=== PATIENT | female | born 1965 | race Caucasian/White ===

== ENCOUNTER 2017-01-06 13:45 | Emergency (ER) | payer BC ==
[2017-01-06 13:54] VITALS: RESP 18
[2017-01-06] MEDS ORDERED: NITROGLYCERIN SL TABS 0.4 MG TAB SUBLINGUAL STA (14:02)
[2017-01-06] MEDS ORDERED: ASPIRIN 81 MG CHEW PO STA (14:02)
[2017-01-06] MEDS ORDERED: SODIUM CHLORIDE 0.9% 1,000 ML IV STA (14:02)
[2017-01-06 14:31] LABS: Basophils # (A) 0.1 k/uL (0-0.2); Basophils % (A) 1 %; CH 32.7; CHCM 33.6; Eosinophils # (A) 0.1 k/uL (0-0.7); Eosinophils % (A) 2 %; HCT 41.5 % (34.0-46.0); HDW 2.11; HGB 13.7 gm/dL (11.4-16.0); Luc # (Auto) 0.09; Luc % (Auto) 1; Lymphocytes # (A) 3.3 k/uL (1.0-4.8); Lymphocytes % (A) 52 %; MCH 32.1 pg (25.0-35.0); MCHC 32.9 g/dL (31.0-37.0); MCV 97.7 fL (80.0-100.0); Mean Platelet Volume 6.9; Monocytes # (A) 0.4 k/uL (0-1.0); Monocytes % (A) 6 %; Neutrophils # (A) 2.4 k/uL (1.3-7.7); Neutrophils % (A) 38 %; RBC 4.25 m/uL (3.80-5.40); RDW 12.8 % (11.5-15.5); WBC 6.3 k/uL (3.8-10.6)
--- NOTE | 2017-01-06 14:33 | ED ---
General Adult HPI - General Chief complaint: Arrhythmia/Palpitations Stated complaint: lt arm tingling Time Seen by Provider: 01/06/17 13:56 Source: patient, RN notes reviewed Mode of arrival: ambulatory Limitations: no limitations - History of Present Illness Initial comments: [place] patient is a 51-year-old female who presents emergency room today with a chief complaint of palpitations feeling nauseated this morning. Patient does admit that she woke up approximately 5 AM felt nauseated sick to her stomach. She admits that she felt some palpitations in her chest. States his symptoms are gone away. States also this morning upon awakening she felt some numbness tingling sensation to upper side of the left upper back and into the left arm. Patient states never had similar symptoms to this in the past. She states she' s currently being treated for a pneumonia bronchitis placed on antibiotics and steroids. She states some sure if it's related to these medications. She states she finished antibiotics and did not take the steroid today. She denies any other complaints or associated symptoms. Patient denies any recent fever, chills, shortness of breath, chest pain, back pain, abdominal pain, nausea or vomiting, dysuria or hematuria, constipation or diarrhea, headaches or visual changes, or any other complaints. - Related Data Home Medications Medication Instructions Recorded Confirmed Calcium Carbonate/Vitamin D3 1 tab PO DAILY 09/09/15 01/06/17 [Calcium 600 + Vit D Tablet] Ascorbic Acid [Vitamin C] 500 mg PO DAILY 01/06/17 01/06/17 Cholecalciferol [Vitamin D3] 1,000 unit PO DAILY 01/06/17 01/06/17 Pediatric Multivit Comb No.144 1 tab PO DAILY 01/06/17 01/06/17 [Children's Chewable Vitamin] Vitamin B-12 (Unknown Dose) 1 tab SUBLINGUAL TU 01/06/17 01/06/17 Allergies Allergy/AdvReac Type Severity Reaction Status Date / Time No Known Allergies Allergy Verified 01/06/17 14:36 Review of Systems ROS Statement: Those systems with pertinent positive or pertinent negative responses have been documented in the HPI. ROS Other: All systems not noted in ROS Statement are negative. Past Medical History Past Medical History: No Reported History History of Any Multi-Drug Resistant Organisms: None Reported Past Surgical History: Bariatric Surgery Past Psychological History: No Psychological Hx Reported Smoking Status: Never smoker Past Alcohol Use History: Occasional Past Drug Use History: None Reported General Exam - General Exam Comments Initial Comments: General: The patient is awake and alert, in no distress, and does not appear acutely ill. Eye: Pupils are equal, round and reactive to light, extra-ocular movements are intact. No nystagmus. There is normal conjunctiva bilaterally. No signs of icterus. Ears, nose, mouth and throat: There are moist mucous membranes and no oral lesions. Neck: The neck is supple, there is no tenderness or JVD. Cardiovascular: There is a regular rate and rhythm. No murmur, rub or gallop is appreciated. Respiratory: Lungs are clear to auscultation, respirations are non-labored, breath sounds are equal. No wheezes, stridor, rales, or rhonchi. Gastrointestinal: Soft, non-distended, non-tender abdomen without masses or organomegaly noted. There is no rebound or guarding present. No CVA tenderness. Bowel sounds are unremarkable. Musculoskeletal: Normal ROM, no tenderness. Strength 5/5. Sensation intact. Pulses equal bilaterally 2+. Neurological: A&O x 3. CN II-XII intact, There are no obvious motor or sensory deficits. Coordination appears grossly intact. Speech is normal. Skin: Skin is warm and dry and no rashes or lesions are noted. Psychiatric: Cooperative, appropriate mood & affect, normal judgment. Limitations: no limitations Course Vital Signs 01/06/17 01/06/17 01/06/17 13:50 15:41 16:52 Temperature 97.4 F L 97.7 F 97.8 F Pulse Rate 63 63 66 Respiratory 18 18 18 Rate Blood Pressure 128/76 111/73 117/74 O2 Sat by Pulse 100 97 98 Oximetry EKG Findings - EKG Comments: EKG Findings:: EKG performed at 1436: A 12-lead EKG was performed and interpreted by me as showing the following: Rate is 61, and rhythm is normal sinus. There are normal QRS complexes and normal R-wave progression. ST segments have no elevation or depression, and CO segments appear normal. Medical Decision Making - Medical Decision Making Patient 51-year-old female presenting for atypical chest pain. Patient's EKG shows normal sinus rhythm. Chest x-ray negative. Initial cardiac enzymes negative. Remaining labs reviewed. Patient no relief with medications. Case discussed with attending physician who did discuss case with admitting physician Dr. Robb who recommends a repeat troponin at 3 hours. Patient has been updated will have repeat troponin at 1715. 1815: As reexamined at this time shows no signs of distress. Resting comfortably in the stretcher. Patient's repeat troponin negative. Results were discussed with the patient. Patient discharged home. Advised follow-up with Dr. Souza insurance special agent. Patient advised to return if any symptoms increase or worsen or for any other concerns. - Lab Data Result diagrams: 01/06/17 14:14 01/06/17 14:14 Lab Results 01/06/17 01/06/17 01/06/17 Range/Units 14:14 14:14 14:14 WBC 6.3 (3.8-10.6) k/uL RBC 4.25 (3.80-5.40) m/uL Hgb 13.7 (11.4-16.0) gm/dL Hct 41.5 (34.0-46.0) % MCV 97.7 (80.0-100.0) fL MCH 32.1 (25.0-35.0) pg MCHC 32.9 (31.0-37.0) g/dL RDW 12.8 (11.5-15.5) % Plt Count 210 (150-450) k/uL Neutrophils % 38 % Lymphocytes % 52 % Monocytes % 6 % Eosinophils % 2 % Basophils % 1 % Neutrophils # 2.4 (1.3-7.7) k/uL Lymphocytes # 3.3 (1.0-4.8) k/uL Monocytes # 0.4 (0-1.0) k/uL Eosinophils # 0.1 (0-0.7) k/uL Basophils # 0.1 (0-0.2) k/uL Manual Slide Review Performed RBC Morphology Normal PT (9.0-12.0) sec INR (<1.1) APTT (22.0-30.0) sec Sodium 141 (137-145) mmol/L Potassium 4.0 (3.5-5.1) mmol/L Chloride 102 (98-107) mmol/L Carbon Dioxide 29 (22-30) mmol/L Anion Gap 10 mmol/L BUN 31 H (7-17) mg/dL Creatinine 0.72 (0.52-1.04) mg/dL Est GFR (MDRD) Af Amer >60 (>60 ml/min/1.73 sqM) Est GFR (MDRD) Non-Af >60 (>60 ml/min/1.73 sqM) Glucose 73 L (74-99) mg/dL Calcium 9.2 (8.4-10.2) mg/dL Magnesium 2.0 (1.6-2.3) mg/dL Total Bilirubin 0.5 (0.2-1.3) mg/dL AST 18 (14-36) U/L ALT 25 (9-52) U/L Alkaline Phosphatase 44 (38-126) U/L Total Creatine Kinase 24 L (30-135) U/L CK-MB (CK-2) 0.4 (0.0-2.4) ng/mL CK-MB (CK-2) Rel Index 1.7 Troponin I <0.012 (0.000-0.034) ng/mL Total Protein 7.2 (6.3-8.2) g/dL Albumin 4.3 (3.5-5.0) g/dL 01/06/17 01/06/17 Range/Units 14:14 17:19 WBC (3.8-10.6) k/uL RBC (3.80-5.40) m/uL Hgb (11.4-16.0) gm/dL Hct (34.0-46.0) % MCV (80.0-100.0) fL MCH (25.0-35.0) pg MCHC (31.0-37.0) g/dL RDW (11.5-15.5) % Plt Count (150-450) k/uL Neutrophils % % Lymphocytes % % Monocytes % % Eosinophils % % Basophils % % Neutrophils # (1.3-7.7) k/uL Lymphocytes # (1.0-4.8) k/uL Monocytes # (0-1.0) k/uL Eosinophils # (0-0.7) k/uL Basophils # (0-0.2) k/uL Manual Slide Review RBC Morphology PT 10.9 (9.0-12.0) sec INR 1.1 (<1.1) APTT 22.4 (22.0-30.0) sec Sodium (137-145) mmol/L Potassium (3.5-5.1) mmol/L Chloride (98-107) mmol/L Carbon Dioxide (22-30) mmol/L Anion Gap mmol/L BUN (7-17) mg/dL Creatinine (0.52-1.04) mg/dL Est GFR (MDRD) Af Amer (>60 ml/min/1.73 sqM) Est GFR (MDRD) Non-Af (>60 ml/min/1.73 sqM) Glucose (74-99) mg/dL Calcium (8.4-10.2) mg/dL Magnesium (1.6-2.3) mg/dL Total Bilirubin (0.2-1.3) mg/dL AST (14-36) U/L ALT (9-52) U/L Alkaline Phosphatase (38-126) U/L Total Creatine Kinase (30-135) U/L CK-MB (CK-2) (0.0-2.4) ng/mL CK-MB (CK-2) Rel Index Troponin I <0.012 (0.000-0.034) ng/mL Total Protein (6.3-8.2) g/dL Albumin (3.5-5.0) g/dL Disposition Clinical Impression: Atypical chest pain Disposition: HOME SELF-CARE Condition: Stable Instructions: Palpitations (ED) Additional Instructions: Please follow-up with the family doctor and insurance special agent as discussed. Please return to emergency room for any symptoms increase worsen or for any other concerns. Referrals: Herve Tapia DO [Primary Care Provider] - 1-2 days Christopher Pham MD [STAFF PHYSICIAN] - 1-2 days Time of Disposition: 18:17
[2017-01-06 14:37] LABS: Partial Thromboplastin Time 22.4 sec (22.0-30.0)
[2017-01-06 14:39] LABS: ALT 25 U/L (9-52); AST 18 U/L (14-36); Alkaline Phosphatase 44 U/L (38-126); Anion Gap 10 mmol/L; Blood Urea Nitrogen 31 mg/dL (7-17); Calcium 9.2 mg/dL (8.4-10.2); Carbon Dioxide 29 mmol/L (22-30); Chloride 102 mmol/L (98-107); Glucose 73 mg/dL (74-99); Non-African American GFR(MDRD) >60 (>60 ml/min/1.73 sqM); Sodium 141 mmol/L (137-145); Total Bilirubin 0.5 mg/dL (0.2-1.3); Total Protein 7.2 g/dL (6.3-8.2)
[2017-01-06 14:40] LABS: INR 1.1 (<1.1); Prothrombin Time 10.9 sec (9.0-12.0)
--- NOTE | 2017-01-06 14:50 | XR ---
EXAMINATION TYPE: XR chest 2V DATE OF EXAM: 01/06/2017 2:45 PM COMPARISON: None HISTORY: 51-year-old female with chest pain TECHNIQUE: PA and lateral views FINDINGS: The cardiomediastinal silhouette, aorta, and pulmonary vasculature are within normal limits. Lungs an d pleural spaces are clear. IMPRESSION: No acute cardiopulmonary process.
[2017-01-06 15:01] LABS: Creatine Kinase 24 U/L (30-135)
[2017-01-06 15:09] LABS: Manual Review Performed
[2017-01-06 15:10] LABS: RBC Morphology Normal
[2017-01-06 15:12] LABS: Creatine Kinase MB 0.4 ng/mL (0.0-2.4); Troponin I <0.012 ng/mL (0.000-0.034)
[2017-01-06 18:27] VITALS: BP 114/66; PULSE 61; TEMP 97.9
== END 2017-01-06 18:27 | disposition home or self-care (01) ==
LOC: EC 13:45
DX: R07.89 Other chest pain (principal); R00.2 Palpitations; R20.2 Paresthesia of skin; R11.0 Nausea; Z79.899 Other long term (current) drug therapy
CPT/HCPCS: 36415; 71020; 80053; 82550; 82553; 83735; 84484; 85025; 85610; 85730; 93005; 99285

== ENCOUNTER → 2018-01-06 | Outpatient (CLI) | payer BC ==
--- NOTE | 2018-01-06 10:17 | BD ---
EXAMINATION TYPE: MG DEXA axial skeleton. DATE OF EXAM: 01/06/2018 COMPARISON: NONE CLINICAL HISTORY: 52 YR OLD FEMALE...ICD-10 CODE: Z13.820 SCREENING Height: 65 Weight: 176 FRAX RISK QUESTIONS: Alcohol (3 or more units per day): NO Family History (Parent hip fracture): YES, HER AUNT, MOTHERS SISTER Glucocorticoids (More than 3mos): NO (Ex: prednisone, prednisolone, methylprednisolone, dexamethasone, and hydrocortisone). History of Fracture in Adulthood: NO Secondary Osteoporosis: NO 1. Type 1 Diabetes: NO 2. Hyperthyroidism: NO 3. Menopause before 45: NO 4. Malnutrition: NO 5. Chronic liver disease: NO Rheumatoid Arthritis: NO Current Tobacco Use: NO RISK FACTORS HISTORY OF: Family History of Osteoporosis: YES, AND AUNT, WITH BROKEN HIP Active: YES Diet low in dairy products/other sources of calcium: NO Postmenopausal woman: YES AT AGE 51 YRS Lost more than 2 inches in height since high school: NO Hyperparathyroidism: NO Adrenal Insufficiency: NO MEDICATIONS: Additional Medications: CALCIUM AND VIT D ONLY Additional History: NONE TO NOTE EXAM MEASUREMENTS: Bone mineral densitometry was performed using the [employer] System. Bone mineral density as measured about the Lumbar spine is: ----- L1-L4(G/cm2): 1.447 T Score Values are as follows: ----- L1: 1.9 ----- L2: 2.2 ----- L3: 3.4 ----- L4: 1.2 ----- L1-L4: 2.2 Bone mineral density FIRST BONE DENSITY AT MPH Bone mineral density about the R hip (g/cm2): 1.004 Bone mineral density about the L hip (g/cm2): 1.061 T Score values are as follows: -----R Neck: -0.1 -----L Neck: 0.1 -----R Total: 0.0 -----L Total: 0.4 Bone mineral density FIRST MPH BONE DENSITY FRAX%S: THERE IS A 9.8% CHANCE OF A MAJOR OSTEOPOROTIC FX AND A 0.1% FOR HIP FX......PROBABILITY OF FX IN 10 YRS TIME IMPRESSION: Normal (Values between +1 and -1 indicate normal bone mass). Consider repeating this study in 5 year s or sooner if there is some new clinical indication. NOTE: T-SCORE=SD OF THE YOUNG ADULT MEAN.
--- NOTE | 2018-01-10 11:13 | MM ---
Reason for exam: screening (asymptomatic). Last mammogram was performed 4 years and 6 months ago. History: Patient is postmenopausal. Physical Findings: A clinical breast exam by your physician is recommended on an annual basis and results should be correlated with mammographic findings. MG 3D Screening Mammo W/Cad Bilateral CC and MLO view(s) were taken. Prior study comparison: July 11, 2013, mammogram. There are scattered fibroglandular densities. No significant changes when compared with prior studies. ASSESSMENT: Incomplete: need additional imaging evaluation, BI-RAD 0 RECOMMENDATION: Ultrasound of the left breast. (at palpable site) [facility] will attempt to contact patient to return for ultrasound.
== END | disposition home or self-care (01) ==
LOC: RADMAMWWP 08:45
PROVIDERS: ATTEND Obstetrics & Gynecology
DX: Z12.31 Encounter for screening mammogram for malignant neoplasm of breast (principal); Z13.820 Encounter for screening for osteoporosis
CPT/HCPCS: 77063; 77067; 77080

== ENCOUNTER → 2018-01-11 | Outpatient (CLI) | payer BC ==
--- NOTE | 2018-01-11 10:19 | USB ---
Reason for exam: additional evaluation requested from abnormal screening. History: Patient is postmenopausal. Physical Findings: Nurse did not find any significant physical abnormalities on exam. US Breast Workup Limited AISHWARYA Right breast ultrasound demonstrates no cystic or solid lesion seen. Left breast ultrasound demonstrates no cystic or solid lesion seen. These results were verbally communicated with the patient and result sheet given to the patient on 01/11/18. ASSESSMENT: Probably benign, BI-RAD 3 RECOMMENDATION: Follow-up diagnostic mammogram and ultrasound of both breasts in 6 months.
== END | disposition home or self-care (01) ==
LOC: RADUSWWP 08:48
PROVIDERS: ATTEND Obstetrics & Gynecology
DX: R92.8 Other abnormal and inconclusive findings on diagnostic imaging of breast (principal)

== ENCOUNTER → 2018-04-17 | Outpatient (CLI) | payer BC ==
--- NOTE | 2018-04-17 15:32 | P.HPBAR ---
Bariatric H&P - History & Physicial H&P Date: 04/17/18 History & Physicial: Visit/CC: Patient initial contact: Initial weight: Initial weight in pounds: Height: Initial BMI: Last weight: Current weight: Current weight in pounds: Current BMI: [place] body weight (based on NIH guidelines): Excess body weight loss: The patient is a 52 year-old F who presents for Bariatric Assessment. Patient presents today for sleeve gastric a fall. She has developed a large panniculus to her weight loss. She loss approximate 80 pounds since surgery. She's had some problems with intermittent skin rashes. Since that she has minimal GERD. Past Medical History Past Medical History: No Reported History History of Any Multi-Drug Resistant Organisms: None Reported Past Surgical History: Bariatric Surgery Past Psychological History: No Psychological Hx Reported Smoking Status: Never smoker Past Alcohol Use History: Occasional Past Drug Use History: None Reported Surgical - Exam - General well developed, no distress - Eyes PERRL - ENT normal pinna - Neck no masses - Respiratory normal expansion - Cardiovascular Rhythm: regular - Abdomen Abdomen: soft, non tender Bariatric Assessment & Plan Plan: The patient has an excellent weight loss with her sleeve. Her GERD is minimal abuser. Patient was given an information booklet on panniculectomy. She will see the dietitian today. She'll follow-up in 3 months. Bariatric Checklist Checklist: Plan: Checklist: EGD: 1. Hiatal hernia: 2. H. Pylori: HgbA1c: Vitamin D: Smoking: Never smoker Primary care physician referral: Psychiatry clearance: Cardiology clearance: Sleep study: Diet journal: VTE risk score: VTE risk level: Rehab needs at discharge:
[2018-04-17 16:17] VITALS: BP 146/95; PULSE 60; RESP 16; TEMP 97.9
[2018-04-17 16:33] LABS: HCT 39.8 % (34.0-46.0); HGB 12.9 gm/dL (11.4-16.0); MCH 30.3 pg (25.0-35.0); MCHC 32.4 g/dL (31.0-37.0); MCV 93.5 fL (80.0-100.0); Mean Platelet Volume 6.9; Platelet Count 186 k/uL (150-450); RBC 4.26 m/uL (3.80-5.40); RDW 12.4 % (11.5-15.5); WBC 6.6 k/uL (3.8-10.6)
[2018-04-17 16:49] LABS: ALT 28 U/L (9-52); AST 20 U/L (14-36); Albumin 4.3 g/dL (3.5-5.0); Alkaline Phosphatase 45 U/L (38-126); Anion Gap 7 mmol/L; Blood Urea Nitrogen 17 mg/dL (7-17); Calcium 9.3 mg/dL (8.4-10.2); Carbon Dioxide 29 mmol/L (22-30); Chloride 104 mmol/L (98-107); Glucose 85 mg/dL (74-99); Potassium 4.2 mmol/L (3.5-5.1); Sodium 140 mmol/L (137-145); Total Bilirubin 0.3 mg/dL (0.2-1.3); Total Protein 6.7 g/dL (6.3-8.2)
[2018-04-18 01:32] LABS: Iron Saturation 23.63 (12.00-45.00)
[2018-04-18 01:44] LABS: Folate, Serum 17.2 ng/mL; Vitamin D 25 Hydroxy 34.3 ng/mL (30.0-100.0)
== END | disposition home or self-care (01) ==
LOC: BARWHC3 15:17
PROVIDERS: ATTEND Surgery
DX: Z48.815 Encounter for surgical aftercare following surgery on the digestive system (principal); K21.9 Gastro-esophageal reflux disease without esophagitis; D64.81 Anemia due to antineoplastic chemotherapy; E66.01 Morbid (severe) obesity due to excess calories; E44.0 Moderate protein-calorie malnutrition; E55.9 Vitamin D deficiency, unspecified; Z98.84 Bariatric surgery status; Z68.30 Body mass index [BMI] 30.0-30.9, adult
CPT/HCPCS: 36415; 80053; 82306; 82607; 82746; 83540; 83550; 84134; 84425; 84443; 85027; 99211

== ENCOUNTER → 2018-10-25 | Outpatient (CLI) | payer BC ==
[2018-10-25 15:54] VITALS: BP 133/89; PULSE 60; RESP 16; TEMP 97.9; BMI 31.4
--- NOTE | 2018-10-25 16:09 | P.GSHP ---
History of Present Illness H&P Date: 10/25/18 DATE OF SERVICE: 10/25/2018 REASON FOR CONSULTATION: Panniculitis HISTORY OF PRESENT ILLNESS: Abbi Schaeffer is a 53-year-old female who comes in highest weight of 252 pounds. Lowest weight was 168 pounds following surgery. She has a prior band and now has a sleeve gastrectomy. She has heartburn with her sleeve. She does not take anything despite her symptoms. She has no reports of esophageal or stomach cancer in her family. She has tried using Nystatin powder in the past for her panniculitis. She is fairly active. Her mother and sister had blood clots. She has maintained 63 pound weight loss. Percent excess weight loss is 62%. At height of 5 feet 5 inches, her ideal body weight is 149 pounds. Her highest weight was 252 pounds. Her body mass index highest was 42.0. Today her BMI is 31.5. She is 40 pounds overweight. PAST MEDICAL HISTORY: 1. Morbid obesity due to excess calories 2. Body mass index of 42.0, initial 3. Panniculitis 4. Osteoarthritis PAST SURGICAL HISTORY: 1. Sleeve gastrectomy 2. Lap band HOME MEDICATIONS: ALLERGIES: Home Medications Medication Instructions Recorded Confirmed Type Calcium Carbonate/Vitamin D3 1 tab PO DAILY 09/09/15 10/25/18 History [Calcium 600 + Vit D Tablet] Ascorbic Acid [Vitamin C] 500 mg PO DAILY 01/06/17 10/25/18 History Cholecalciferol [Vitamin D3] 1,000 unit PO DAILY 01/06/17 10/25/18 History Pediatric Multivitamin No.144 1 tab PO DAILY 01/06/17 10/25/18 History [Children's Chewable Vitamin] Vitamin B-12 (Unknown Dose) 1 tab SUBLINGUAL TU 01/06/17 10/25/18 History Nystatin 100,000 Unit/gm Powd 1 dose TOPICAL TID PRN 04/17/18 10/25/18 History [Mycostatin Powder] Allergies Allergy/AdvReac Type Severity Reaction Status Date / Time No Known Allergies Allergy Verified 10/25/18 17:24 SOCIAL HISTORY: No past tobacco use. FAMILY HISTORY: No family history of ulcerative colitis disease or Crohn's disease. Family history of morbid obesity. No lupus in the family. No reports of stomach or esophageal cancer. REVIEW OF ORGAN SYSTEMS: CONSTITUTIONAL: At height of 5 feet 5 inches, her ideal body weight is 149 pounds. Her body mass index highest was 42.0. HEENT: Denies any active troubles with vision or hearing. No troubles with swallowing. ENDOCRINE: No diabetes. No hypothyroidism. CARDIOVASCULAR: No reports of palpitations or heart attacks or chest pain. RESPIRATORY: No daytime somnolence. No asthma. GI: Denies any bright red blood per rectum. No diarrhea. No constipation. MUSCULOSKELETAL: Has lower back pain and joint pain. Has osteoarthritis of the knees. History of bilateral lower extremity edema. NEURO: No headaches. No seizure disorders. PSYCH: Has depression. No suicidal ideation. RHEUMATOLOGIC: No lupus. No rheumatoid arthritis. HEMATOLOGIC: Denies any abnormal bleeding or bruising. No personal history of DVTs. SKIN: No rash. No skin cancer. PHYSICAL EXAM: VITAL SIGNS: Height 5 foot 5 inches, weight 189 pounds. BMI 31.5 Vital Signs Temp 97.9 F 10/25/18 15:50 Pulse 60 10/25/18 15:50 Resp 16 10/25/18 15:50 BP 133/89 10/25/18 15:50 Pulse Ox GENERAL: Well-developed in no acute distress. HEENT: No scleral icterus. Extraocular movements grossly intact. Hears conversational speech. No nasal drainage. NECK: Supple without lymphadenopathy. CHEST: Nonlabored respirations with equal bilateral excursions. CARDIOVASCULAR: Regular rate and regular rhythm. Distal 2+ pulses. ABDOMEN: Obese, soft, nontender, nondistended. Pannus of 5 to 10 pounds. MUSCULOSKELETAL: No clubbing, cyanosis. Gross strength 5/5 distal lower extremities. NEURO: No focal or lateralizing signs. Cranial nerves 2 through 12 grossly within normal limits. PSYCH: Appropriate affect. Alert and oriented to person, place and time. SKIN: Good skin turgor. Well perfused. ASSESSMENT: 1. Morbid obesity due to excess calories 2. Body mass index of 42.0, initial to 31.5 3. Panniculitis 4. Osteoarthritis, resolved. PLAN: 1. Recommend bariatric metabolic panel for nutrient deficiencies 2. Recommend panniculectomy for chronic panniculitis. 3. Full recovery of 6 to 8 weeks reviewed. 4. Two week protein diet to address protein malnutrition 5. Risks of bleeding, infection, pain, seroma, need for further surgery, and chronic pain were described. 6. She is intermediate risk for complications. Thank you for this consultation. Laboratory Last Values WBC 5.8 k/uL (3.8-10.6) 10/25/18 16:36 RBC 4.27 m/uL (3.80-5.40) 10/25/18 16:36 Hgb 13.0 gm/dL (11.4-16.0) 10/25/18 16:36 Hct 41.1 % (34.0-46.0) 10/25/18 16:36 MCV 96.2 fL (80.0-100.0) 10/25/18 16:36 MCH 30.5 pg (25.0-35.0) 10/25/18 16:36 MCHC 31.7 g/dL (31.0-37.0) 10/25/18 16:36 RDW 13.1 % (11.5-15.5) 10/25/18 16:36 Plt Count 210 k/uL (150-450) 10/25/18 16:36 PT 9.7 sec (9.0-12.0) 10/25/18 16:36 INR 0.9 (<1.2) 10/25/18 16:36 APTT 24.2 sec (22.0-30.0) 10/25/18 16:36 Sodium 142 mmol/L (135-145) 10/25/18 16:36 Potassium 4.4 mmol/L (3.5-5.5) 10/25/18 16:36 Chloride 106 mmol/L (96-109) 10/25/18 16:36 Carbon Dioxide 26.0 mmol/L (21.6-31.8) 10/25/18 16:36 Anion Gap 10.00 mmol/L (4.00-12.00) 10/25/18 16:36 BUN 19.0 mg/dL (9.0-27.0) 10/25/18 16:36 Creatinine 0.8 mg/dL (0.6-1.5) 10/25/18 16:36 Est GFR (CKD-EPI)AfAm 96.2 (60.0-200.0) 10/25/18 16:36 Est GFR (CKD-EPI)NonAf 83.0 (60.0-200.0) 10/25/18 16:36 BUN/Creatinine Ratio 23.75 Ratio (12.00-20.00) H 10/25/18 16:36 Glucose 77 mg/dL (70-110) 10/25/18 16:[address] Glu mg/dL 103 10/25/18 16:36 Hemoglobin A1c 5.2 % (4.0-6.0) 10/25/18 16:36 Calcium 9.2 mg/dL (8.7-10.3) 10/25/18 16:36 Phosphorus 3.8 mg/dL (2.4-5.1) 10/25/18 16:36 Magnesium 2.0 mg/dL (1.5-2.4) 10/25/18 16:36 Iron 49 ug/dL (50-170) L 10/25/18 16:36 TIBC 268 ug/dL (228-460) 10/25/18 16:36 Iron Saturation 18.28 (12.00-45.00) 10/25/18 16:36 Ferritin 33.8 ng/mL (10.0-291.0) 10/25/18 16:36 Total Bilirubin 0.3 mg/dL (0.3-1.2) 10/25/18 16:36 AST 20 U/L (13-35) 10/25/18 16:36 ALT 11 U/L (8-44) 10/25/18 16:36 Alkaline Phosphatase 53 U/L (41-126) 10/25/18 16:36 Total Protein 6.5 g/dL (6.2-8.2) 10/25/18 16:36 Albumin 4.40 g/dL (3.80-4.90) 10/25/18 16:36 Globulin 2.1 g/dL (1.6-3.3) 10/25/18 16:36 Albumin/Globulin Ratio 2.10 g/dL (1.60-3.17) 10/25/18 16:36 Prealbumin 23.0 mg/dL (18.0-42.0) 10/25/18 16:36 Triglycerides 80.0 mg/dL (0.0-149.0) 10/25/18 16:36 Cholesterol 201 mg/dL (0-200) H 10/25/18 16:36 LDL Cholesterol, Calc 93.0 mg/dL (0.0-131.0) 10/25/18 16:36 VLDL Cholesterol, Calc 16.00 mg/dL (5.00-40.00) 10/25/18 16:36 HDL Cholesterol 92.0 mg/dL (40.0-60.0) H 10/25/18 16:36 Cholesterol/HDL Ratio 2.18 10/25/18 16:36 Vitamin B12 453.0 pg/mL (200.0-944.0) 10/25/18 16:36 Vitamin D 25-Hydroxy 37.8 ng/mL (30.0-100.0) 10/25/18 16:36 Folate 24.0 ng/mL 10/25/18 16:36 TSH 1.750 uIU/mL (0.350-5.500) 10/25/18 16:36 PTH Intact 83.4 pg/mL (14.0-72.0) H 10/25/18 16:36 Copper 977 ug/L (810-1990) 10/25/18 16:36 Zinc 67 ug/dL (60-130) 10/25/18 16:36 Iron is low. Will need iron infusion. PTH is elevated. Recommend calcium supplement Past Medical History Past Medical History: No Reported History History of Any Multi-Drug Resistant Organisms: None Reported Past Surgical History: Bariatric Surgery Smoking Status: Never smoker Medications and Allergies Home Medications Medication Instructions Recorded Confirmed Type Calcium Carbonate/Vitamin D3 1 tab PO DAILY 09/09/15 10/25/18 History [Calcium 600 + Vit D Tablet] Ascorbic Acid [Vitamin C] 500 mg PO DAILY 01/06/17 10/25/18 History Cholecalciferol [Vitamin D3] 1,000 unit PO DAILY 01/06/17 10/25/18 History Pediatric Multivitamin No.144 1 tab PO DAILY 01/06/17 10/25/18 History [Children's Chewable Vitamin] Vitamin B-12 (Unknown Dose) 1 tab SUBLINGUAL TU 01/06/17 10/25/18 History Nystatin 100,000 Unit/gm Powd 1 dose TOPICAL TID PRN 04/17/18 10/25/18 History [Mycostatin Powder] Allergies Allergy/AdvReac Type Severity Reaction Status Date / Time No Known Allergies Allergy Verified 10/25/18 17:24 Results - Labs 10/25/18 16:36 10/25/18 16:36
[2018-10-25 17:56] LABS: HCT 41.1 % (34.0-46.0); MCH 30.5 pg (25.0-35.0); MCHC 31.7 g/dL (31.0-37.0); MCV 96.2 fL (80.0-100.0); Platelet Count 210 k/uL (150-450); RBC 4.27 m/uL (3.80-5.40); RDW 13.1 % (11.5-15.5); WBC 5.8 k/uL (3.8-10.6)
[2018-10-25 18:00] LABS: INR 0.9 (<1.2); Partial Thromboplastin Time 24.2 sec (22.0-30.0); Prothrombin Time 9.7 sec (9.0-12.0)
[2018-10-25 22:54] LABS: Iron Saturation 18.28 (12.00-45.00)
[2018-10-25 22:56] LABS: Albumin 4.4 g/dL (3.80-4.90); Albumin/Globulin Ratio 2.1 (1.60-3.17); Calcium 9.2 mg/dL (8.7-10.3); Globulin 2.1 g/dL (1.6-3.3); Phosphorus 3.8 mg/dL (2.4-5.1); Potassium 4.4 mmol/L (3.5-5.5); Total Bilirubin 0.3 mg/dL (0.3-1.2); Total Protein 6.5 g/dL (6.2-8.2)
[2018-10-25 23:02] LABS: Vitamin D 25 Hydroxy 37.8 ng/mL (30.0-100.0)
[2018-10-25 23:37] LABS: Parathyroid Hormone Intact 83.4 pg/mL (14.0-72.0)
[2018-10-26 01:26] LABS: Hemoglobin A1C 5.2 % (4.0-6.0)
[2018-10-26 13:05] LABS: Zinc, Serum 67 ug/dL (60-130)
[2018-10-27 18:07] LABS: Selenium 147 mcg/L (63-160)
[2018-10-30 07:18] LABS: Vit B1(Thiamine) 57 ug/L (38-122)
[2018-10-31 06:33] LABS: Vitamin A 51 ug/dL (38-106)
== END | disposition home or self-care (01) ==
LOC: BARWHC3 14:31
PROVIDERS: ATTEND Surgery Plastic and Reconstructive Surgery
DX: Z48.815 Encounter for surgical aftercare following surgery on the digestive system (principal); E66.01 Morbid (severe) obesity due to excess calories; M79.3 Panniculitis, unspecified; Z68.31 Body mass index [BMI] 31.0-31.9, adult; Z98.84 Bariatric surgery status
CPT/HCPCS: 36415; 80053; 80061; 82306; 82525; 82607; 82728; 82746; 83036; 83540; 83550; 83735; 83970; 84100; 84134; 84255; 84425; 84443; 84590; 84630; 85027; 85610; 85730; 99211

== ENCOUNTER → 2018-10-27 | Outpatient (CLI) | payer BC | END | disposition home or self-care (01) | LOC: LABPAT 17:14 | PROVIDERS: ATTEND Surgery Plastic and Reconstructive Surgery | DX: Z01.818 Encounter for other preprocedural examination (principal); Z01.812 Encounter for preprocedural laboratory examination | CPT/HCPCS: 93005 ==

== ENCOUNTER → 2018-11-16 | Outpatient (CLI) | payer BC | LOC: LABWHC1 09:40 | PROVIDERS: ATTEND Internal Medicine Interventional Cardiology | DX: E03.9 Hypothyroidism, unspecified (principal) | CPT/HCPCS: 36415; 84443 ==

== ENCOUNTER 2018-12-04 12:19 | Observation (INO) | payer BC ==
--- NOTE | 2018-12-04 08:06 | P.GSHP ---
History of Present Illness H&P Date: 12/04/18 CHIEF COMPLAINT: Panniculitis HISTORY OF PRESENT ILLNESS: Abbi Schaeffer is a 53-year-old female who comes in highest weight of 252 pounds. Lowest weight was 168 pounds following surgery. She has a prior band and now has a sleeve gastrectomy. She has heartburn with her sleeve. She does not take anything despite her symptoms. She has no reports of esophageal or stomach cancer in her family. She has tried using Nystatin powder in the past for her panniculitis. She is fairly active. Her mother and sister had blood clots. She has maintained 63 pound weight loss. Percent excess weight loss is 62%. At height of 5 feet 5 inches, her ideal body weight is 149 pounds. Her highest weight was 252 pounds. Her body mass index highest was 42.0. Today her BMI is 31.5. She is 40 pounds overweight. PAST MEDICAL HISTORY: 1. Morbid obesity due to excess calories 2. Body mass index of 42.0, initial 3. Panniculitis 4. Osteoarthritis PAST SURGICAL HISTORY: 1. Sleeve gastrectomy 2. Lap band HOME MEDICATIONS: ALLERGIES: Home Medications Medication Instructions Recorded Confirmed Type Calcium Carbonate/Vitamin D3 1 tab PO DAILY 09/09/15 10/25/18 History [Calcium 600 + Vit D Tablet] Ascorbic Acid [Vitamin C] 500 mg PO DAILY 01/06/17 10/25/18 History Cholecalciferol [Vitamin D3] 1,000 unit PO DAILY 01/06/17 10/25/18 History Pediatric Multivitamin No.144 1 tab PO DAILY 01/06/17 10/25/18 History [Children's Chewable Vitamin] Vitamin B-12 (Unknown Dose) 1 tab SUBLINGUAL TU 01/06/17 10/25/18 History Nystatin 100,000 Unit/gm Powd 1 dose TOPICAL TID PRN 04/17/18 10/25/18 History [Mycostatin Powder] Allergies Allergy/AdvReac Type Severity Reaction Status Date / Time No Known Allergies Allergy Verified 10/25/18 17:24 SOCIAL HISTORY: No past tobacco use. FAMILY HISTORY: No family history of ulcerative colitis disease or Crohn's disease. Family history of morbid obesity. No lupus in the family. No reports of stomach or esophageal cancer. REVIEW OF ORGAN SYSTEMS: CONSTITUTIONAL: At height of 5 feet 5 inches, her ideal body weight is 149 pounds. Her body mass index highest was 42.0. HEENT: Denies any active troubles with vision or hearing. No troubles with swallowing. ENDOCRINE: No diabetes. No hypothyroidism. CARDIOVASCULAR: No reports of palpitations or heart attacks or chest pain. RESPIRATORY: No daytime somnolence. No asthma. GI: Denies any bright red blood per rectum. No diarrhea. No constipation. MUSCULOSKELETAL: Has lower back pain and joint pain. Has osteoarthritis of the knees. History of bilateral lower extremity edema. NEURO: No headaches. No seizure disorders. PSYCH: Has depression. No suicidal ideation. RHEUMATOLOGIC: No lupus. No rheumatoid arthritis. HEMATOLOGIC: Denies any abnormal bleeding or bruising. No personal history of DVTs. SKIN: No rash. No skin cancer. PHYSICAL EXAM: VITAL SIGNS: Height 5 foot 5 inches, weight 189 pounds. BMI 31.5 GENERAL: Well-developed in no acute distress. HEENT: No scleral icterus. Extraocular movements grossly intact. Hears c onversational speech. No nasal drainage. NECK: Supple without lymphadenopathy. CHEST: Nonlabored respirations with equal bilateral excursions. CARDIOVASCULAR: Regular rate and regular rhythm. Distal 2+ pulses. ABDOMEN: Obese, soft, nontender, nondistended. Pannus of 5 to 10 pounds. MUSCULOSKELETAL: No clubbing, cyanosis. Gross strength 5/5 distal lower extremities. NEURO: No focal or lateralizing signs. Cranial nerves 2 through 12 grossly within normal limits. PSYCH: Appropriate affect. Alert and oriented to person, place and time. SKIN: Good skin turgor. Well perfused. ASSESSMENT: 1. Morbid obesity due to excess calories 2. Body mass index of 42.0, initial to 31.5 3. Panniculitis 4. Osteoarthritis, resolved. PLAN: 1. Recommend bariatric metabolic panel for nutrient deficiencies 2. Recommend panniculectomy for chronic panniculitis. 3. Full recovery of 6 to 8 weeks reviewed. 4. Two week protein diet to address protein malnutrition 5. Risks of bleeding, infection, pain, seroma, need for further surgery, and chronic pain were described. 6. She is intermediate risk for complications. Thank you for this consultation. Past Medical History Past Medical History: No Reported History History of Any Multi-Drug Resistant Organisms: None Reported Past Surgical History: Bariatric Surgery, Cholecystectomy Additional Past Surgical History / Comment(s): LAP BAND, THEN gastric sleeve, Past Anesthesia/Blood Transfusion Reactions: No Reported Reaction Smoking Status: Former smoker - Past Family History Mother Family Medical History: Deep Vein Thrombosis (DVT) Father Family Medical History: Cancer Sister(s) Family Medical History: Cancer Medications and Allergies Home Medications Medication Instructions Recorded Confirmed Type Calcium Carbonate/Vitamin D3 1 tab PO DAILY 09/09/15 11/17/18 History [Calcium 600 + Vit D Tablet] Cholecalciferol [Vitamin D3] 1,000 unit PO DAILY 01/06/17 11/17/18 History Nystatin 100,000 Unit/gm Powd 1 dose TOPICAL TID PRN 04/17/18 11/17/18 History [Mycostatin Powder] Pediatric Multivitamin No.30 1 each PO DAILY 11/17/18 11/17/18 History [Multivitamin Children's Gummies] Allergies Allergy/AdvReac Type Severity Reaction Status Date / Time No Known Allergies Allergy Verified 11/17/18 11:03
[~2018-12-04 12:19] MED LIST: DEXAMETHASONE SOD PHOSPHATE 10 MG/ML 1 ML VIAL IV ONE; MORPHINE SULFATE 4 MG/ML SYRINGE IV PRN; ONDANSETRON 4 MG/2 ML VIAL IVP ONE; ONDANSETRON 4 MG/2 ML VIAL IVP PRN; ceFAZolin IN SWFI 2 GM/20 ML SYRINGE IVP ONE
[2018-12-04] MEDS ORDERED: ONDANSETRON 4 MG/2 ML VIAL IVP ONE (12:51)
[2018-12-04] MEDS: LACTATED RINGERS 1,000 ML IV SCH ×2 (12:51→17:23)
[2018-12-04] MEDS ORDERED: LIDOCAINE 1% 20 ML VIAL (10MG/ML) FOR IV START SQ ONE (12:51)
[2018-12-04] MEDS ORDERED: DEXAMETHASONE SOD PHOSPHATE 10 MG/ML 1 ML VIAL IV ONE (12:52)
[2018-12-04] MEDS ORDERED: HEPARIN SODIUM,PORCINE 5,000 UNIT/ML 1 ML VIAL SQ STA (13:14)
[2018-12-04] MEDS ORDERED: ACETAMINOPHEN IV (For NPO) 1,000 MG in EMPTY BAG 1 BAG IVPB ONE ×2 (13:15→16:02)
[2018-12-04] MEDS ORDERED: PROPOFOL 10 MG/ML 20 ML VIAL IV ONE (13:23)
[2018-12-04] MEDS ORDERED: ACETAMINOPHEN IV (For NPO) 1,000 MG/100 ML VIAL ONE (13:23)
[2018-12-04] MEDS ORDERED: fentaNYL (PF) 50 MCG/ML 2 ML AMP ONE (13:23)
[2018-12-04] MEDS ORDERED: SUCCINYLCHOLINE CHLORIDE 100 MG/5 ML SYR IV ONE (13:23)
[2018-12-04] MEDS ORDERED: HYDROmorphone (PF) 1 MG/ML ONE (13:23)
[2018-12-04] MEDS ORDERED: LIDOCAINE 1% INJ 10MG/ML (20 ML MDV) ONE (13:23)
[2018-12-04] MEDS ORDERED: MIDAZOLAM 2 MG/2 ML VIAL ONE (13:23)
[2018-12-04] MEDS ORDERED: HEPARIN SODIUM,PORCINE 5,000 UNIT/ML 1 ML VIAL SQ ONE (13:26)
[2018-12-04] MEDS ORDERED: LACTATED RINGERS 1,000 ML IV ONE (14:18)
[2018-12-04] MEDS ORDERED: NALOXONE 0.4 MG/ML 1 ML VIAL IV PRN (16:02)
[2018-12-04] MEDS ORDERED: ONDANSETRON 4 MG/2 ML VIAL IVP PRN (16:02)
[2018-12-04] MEDS ORDERED: HYDROcodone/APAP 15 ML SOLUTION PO PRN (16:02)
--- NOTE | 2018-12-04 16:23 | P.OP ---
Date of Procedure: 12/04/18 Description of Procedure: SURGEON: SUSANNA HILL MD PREOPERATIVE DIAGNOSES: 1. Morbid obesity due to excess calories. 2. Body mass index of 42.0 down to 30.0. 3. Osteoarthritis of lower back. 4. Panniculitis. 5. Status post sleeve gastrectomy. 6. Central adiposity POSTOPERATIVE DIAGNOSES: 1. Morbid obesity due to excess calories. 2. Body mass index of 42.0 down to 30.0. 3. Osteoarthritis of lower back. 4. Panniculitis. 5. Status post sleeve gastrectomy. 6. Central adiposity OPERATION: 1. Panniculectomy, 4.24 pounds. ANESTHESIA: General ESTIMATED BLOOD LOSS: 150 mL SPECIMENS REMOVED: Pannus 4.24 pounds. COMPLICATIONS: None. CONDITION: Stable. DRAINS: Two #19 Konstantin drains below abdominal flap extending through the pubis. OPERATIVE FINDINGS: 1. Pannus weighing 4.24 pounds, excised. INDICATIONS: Abbi Schaeffer is a 53-year-old female who comes in highest weight of 252 pounds. Lowest weight was 168 pounds following bariatric surgery. She had a prior band and now has a sleeve gastrectomy. She has maintained 63 pound weight loss. Percent excess weight loss is 62%. Despite medical therapy with prescription powders, she has developed severe medical refractory panniculitis. Her body mass index has been reduced to 30.0. Given her clinical symptoms, including massive weight loss, she elected for surgical intervention with a panniculectomy. Benefits and risks of the procedure including bleeding, infection, risk of flap failure, abdominal wall seromas, c hronic pain were described at length. Informed consent was obtained. DESCRIPTION: In the preanesthesia care unit the patient was marked with an indelible marker. She had also been given heparin subcutaneously. The patient was brought into the operating room and laid in supine position. After general induction, a Gonzalez catheter was placed. The abdomen was then prepped and draped in standard sterile fashion using ChloraPrep. The skin was prepped as far laterally to the back, inferiorly to the upper thighs and superiorly to above the bilateral breasts. A timeout protocol was confirmed with the surgical team regarding patient's name, procedure to be performed, including preoperative medications. She had received Ancef 2 grams IV antibiotics. Once the time-out protocol was confirmed with the surgical team, the patient was re-marked with indelible marker whereby the midline of the xiphoid to the mons pubis was marked. The anterior/superior iliac spine along the bilateral hips was also marked. Approximately 7 cm above the pubis commissure a transverse incision was made for the inferior portion of the flap. Using a #10 blade, the incision was taken from the midline laterally to above the anterior/superior iliac spine, initially on the left side of the patient and then on the right side of the patient. Electro-Bovie cautery was used to control for hemostasis. The dissection was taken down to the level of the fascia. Landmarks used were the xiphoid process as well as the bilateral costal margins for the superior margin. Care was taken to avoid any creation of dog ears during the dissection. Hemostasis was once again checked with electro-Bovie cautery and all defects were addressed. Attention was now brought to closure of the flap. Using stainless steel skin leslee, the midline was once again marked of the upper flap as well as the pubic commissure. The patient was placed in a flexed position of approximately 20 degrees at the hips. The pannus was extended inferiorly to the feet. The upper flap was created once the excess skin was excised. Again care was taken to avoid any dog ears along the lateral aspect of the incisions. Once excised, the pannus was weighed at 4.24 pounds. The upper and lower flaps were reapproximated at the midline and then laterally to the skin with skin leslee. Once reapproximated, the skin was closed in layers using 0 Vicryl for the superficial fascial system followed by running 3-0 Monocryl for the deep dermis in a running subcuticular fashion. Prior to skin closure, two round #19 Konstantin drains were placed underneath the fla p and brought out just inferior to the incision along the pubis. Drain stitch using 2-0 nylon was placed. Once the incision was closed, bulb suction was attached. Hemostasis was checked. At the end of the procedure, the needle, sponge and instrument count was verified correct. Exofin tape was placed along the length of the incision. Optifoam dressings were applied over the incision and used as a drain sponge. The patient was then transferred to a hospital bed in a beach chair position. An abdominal binder was placed and marked. The patient was taken to the postanesthesia care unit in stable condition, awake and extubated. Total time for procedure from skin to skin was 105 minutes. The intraoperative findings were discussed with her parents who was pleased with the level of care.
[2018-12-04] MEDS: HYDROmorphone 0.5 MG/0.5 ML SYRINGE IVP PRN ×2 (17:05→17:16)
[2018-12-04] MEDS: 0.9% NACL WITH KCL 20 MEQ/L 1,000 ML IV SCH (20:24)
[2018-12-04] MEDS: CALCIUM CARBONATE 500 MG CHEWABLE PO PRN (23:09)
[2018-12-04] MEDS: ceFAZolin IN SWFI 2 GM/20 ML SYRINGE IVP SCH (23:10)
[2018-12-05] MEDS: HYDROmorphone 1 MG/ML 1 ML SYRINGE IVP PRN ×2 (01:52→06:57)
[2018-12-05] MEDS: 0.9% NACL WITH KCL 20 MEQ/L 1,000 ML IV SCH (01:54)
[2018-12-05] MEDS: CALCIUM CARBONATE 500 MG CHEWABLE PO PRN ×2 (07:06→13:13)
[2018-12-05] MEDS: ceFAZolin IN SWFI 2 GM/20 ML SYRINGE IVP SCH (08:00)
[2018-12-05] MEDS ORDERED: 0.9% NACL WITH KCL 20 MEQ/L 1,000 ML IV SCH (08:00)
[2018-12-05] MEDS ORDERED: ENOXAPARIN 40 MG/0.4 ML SYRINGE SQ SCH (09:00)
[2018-12-05] MEDS ORDERED: PANTOPRAZOLE 40 MG/10 ML VIAL IV SCH (09:00)
[2018-12-05] MEDS: HYDROcodone/APAP 5-325MG 1 EACH TAB PO PRN ×3 (10:58→18:49)
--- NOTE | 2018-12-05 15:28 | P.DS ---
Providers Date of admission: 12/04/18 22:51 Expected date of discharge: 12/05/18 Attending physician: Janessa Herr Primary care physician: Herve Bournewood Hospital Course: 53-year-old female who underwent panniculectomy with Dr. Herr on 12/04/2018. The patient is doing well postoperatively without any immediate complications. She has been tolerating PO intake. Patient did have one isolated episode of emesis post op. She was encouraged to follow a soft, bland diet for the next few days. Nausea has since resolved. Pain is controlled with oral medications. Patient is hemodynamically stable. She is stable for discharge home today. Patient educated on JOSE ROBERTO drains. She is to continue abdominal binder at all times. She was instructed not to remove binder. Patient verbalized understanding. She is to follow up with Dr. Herr. Please see EMR for further hospital course details. DISCHARGE DIAGNOSIS: 1. Morbid obesity due to excess calories. 2. Body mass index of 42.0 down to 30.0. 3. Osteoarthritis of lower back. 4. Panniculitis. 5. Status post sleeve gastrectomy. 6. Central adiposity Nurse practitioner note has been reviewed by physician. Signing provider agrees with the documented findings, assessment, and plan of care. Plan - Discharge Summary Discharge Rx Participant: Yes New Discharge Prescriptions: New HYDROcodone/APAP 5-325MG [[place] 5-325] 1 tab PO Q4HR PRN 3 Days #18 tab PRN Reason: Pain Docusate [Colace] 100 mg PO BID #30 capsule Continue Calcium Carbonate/Vitamin D3 [Calcium 600-Vit D3 400 Tablet] 1 tab PO DAILY Pediatric Multivitamin No.30 [Multivitamin Children's Gummies] 1 tab PO DAILY Discontinued Cholecalciferol [Vitamin D3] 1,000 unit PO DAILY Nystatin 100,000 Unit/gm Powd [Mycostatin Powder] 1 dose TOPICAL TID PRN PRN Reason: Skin Irritation Discharge Medication List Calcium Carbonate/Vitamin D3 [Calcium 600-Vit D3 400 Tablet] 1 tab PO DAILY 09/09/15 [History] Pediatric Multivitamin No.30 [Multivitamin Children's Gummies] 1 tab PO DAILY 11/17/18 [History] Docusate [Colace] 100 mg PO BID #30 capsule 12/05/18 [Rx] HYDROcodone/APAP 5-325MG [[place] 5-325] 1 tab PO Q4HR PRN 3 Days #18 tab 12/05/18 [Rx] Follow up Appointment(s)/Referral(s): [facility] [NON-STAFF] - 12/08/18 10:00 am Patient Instructions/Handouts: Oscar-Granda Drain Care (DC), Abdominal Binder (DC), Panniculectomy (DC) Activity/Diet/Wound Care/Special Instructions: NO lifting over 4 pounds in 4 weeks. No shower. No bathtub soaks. Record JOSE ROBERTO drain output daily and strip drains to prevent clogging. Sleep with head of bed up at 30 to 45 degrees. Walk with hips flexed to prevent tear of your incision. Dressings to be removed by your doctor in the office. EAT 75 G PROTEIN DAILY FOR OPTIMAL RECOVERY. Take MOM for constipation. Discharge Disposition: HOME SELF-CARE
[2018-12-05 16:31] VITALS: BP 99/56; PULSE 70; RESP 16; TEMP 98.9
== END 2018-12-05 19:01 | disposition home or self-care (01) ==
LOC: OR 12:19 → 6PED 16:00 → OR 22:50 → 6PED 22:51 → OR 12-05 04:49 → 6PED 12-05 04:49 → OR 12-05 05:25
PROVIDERS: ADMIT Surgery Plastic and Reconstructive Surgery; ATTEND Surgery Plastic and Reconstructive Surgery
DX: M79.3 Panniculitis, unspecified (principal); Z98.84 Bariatric surgery status; M47.9 Spondylosis, unspecified; Z68.30 Body mass index [BMI] 30.0-30.9, adult; R12 Heartburn; E46 Unspecified protein-calorie malnutrition; Z87.891 Personal history of nicotine dependence; Z90.49 Acquired absence of other specified parts of digestive tract; Z80.9 Family history of malignant neoplasm, unspecified; Z83.2 Family history of diseases of the blood and blood-forming organs and certain disorders involving the immune mechanism; Z82.49 Family history of ischemic heart disease and other diseases of the circulatory system
CPT/HCPCS: 94760; 81025; 17999; G0378 ×2; J2250; J1644; J1100; J2405; J2001; J1650; J3010; J1170 ×3; J0131; J0330; J2704; C9113; J0690 ×2

== ENCOUNTER → 2018-12-08 | Outpatient (CLI) | payer BC ==
[2018-12-08 11:03] VITALS: BP 125/84; PULSE 82; TEMP 98.2; BMI 29.9
--- NOTE | 2018-12-08 11:30 | P.PN ---
Subjective Progress Note Date: 12/08/18 She is status post removal of skin 4.24 pounds. Pain control. JOSE ROBERTO serosanguineous. No infection. External Opteform dressing removed. Follow-up next week nurse visit for dressing changes. Abdominal binder refitted with noticeable excoriations on the breast line. Additional padding placed with abdominal binder. Objective - Vital Signs Vital signs: Vital Signs Temp 98.2 F 12/08/18 10:32 Pulse 82 12/08/18 10:32 Resp BP 125/84 12/08/18 10:32 Pulse Ox Intake & Output 12/07/18 12/08/18 12/08/18 18:59 06:59 18:59 Weight 81.647 kg
== END ==
LOC: BARWHC3 09:54
PROVIDERS: ATTEND Surgery Plastic and Reconstructive Surgery
DX: Z48.817 Encounter for surgical aftercare following surgery on the skin and subcutaneous tissue (principal); Z98.890 Other specified postprocedural states
CPT/HCPCS: 99212

== ENCOUNTER → 2018-12-20 | Outpatient (CLI) | payer BC ==
[2018-12-20 09:17] VITALS: BP 108/77; PULSE 74; TEMP 97.8; BMI 29.9
--- NOTE | 2018-12-20 09:22 | P.PN ---
Subjective Progress Note Date: 12/20/18 DATE OF SERVICE: 12/20/2018 CHIEF COMPLAINT: Panniculitis HISTORY OF PRESENT ILLNESS: Abbi Schaeffer is a 53-year-old female who comes in highest weight of 252 pounds. She is status post panniculectomy with removal of skin 4.24 pounds, 12/04/2018. Patient is doing very well. Pain well controlled. Outputs less than 5-10 mL daily serosanguineous. At height of 5 feet 5 inches, her ideal body weight is 149 pounds. Her highest weight was 252 pounds. Her body mass index highest was 42.0. Today her BMI is 30.0. She has lost 9 pounds since her last visit, 1 month ago. Lifetime weight loss of 72 pounds. Percent excess weight loss is 70%. She is 30 pounds overweight. PHYSICAL EXAM: VITAL SIGNS: Height 5 foot 5 inches, weight 180 pounds. BMI 30.0 Vital Signs Temp 97.8 F 12/20/18 09:10 Pulse 74 12/20/18 09:10 Resp BP 108/77 12/20/18 09:10 Pulse Ox GENERAL: Well-developed in no acute distress. HEENT: No scleral icterus. Extraocular movements grossly intact. Hears conversational speech. No nasal drainage. NECK: Supple without lymphadenopathy. CHEST: Nonlabored respirations with equal bilateral excursions. CARDIOVASCULAR: Regular rate and regular rhythm. Distal 2+ pulses. ABDOMEN: JOSE ROBERTO serosanguineous. No infection. Tape discontinued. Drains discontinued. Binder iain-ddressed. MUSCULOSKELETAL: No clubbing, cyanosis. Gross strength 5/5 distal lower extremities. NEURO: No focal or lateralizing signs. Cranial nerves 2 through 12 grossly within normal limits. PSYCH: Appropriate affect. Alert and oriented to person, place and time. SKIN: Good skin turgor. Well perfused. ASSESSMENT: 1. Morbid obesity due to excess calories 2. Body mass index of 42.0, initial to 30.0 3. Panniculitis, panniculectomy, 4 pounds 4. Osteoarthritis, resolved. PLAN: 1. Follow up 1 week for abdominal seroma check. 2. After which, patient may go back to work in 1-2 weeks. Objective - Vital Signs Vital signs: Vital Signs Temp 97.8 F 12/20/18 09:10 Pulse 74 12/20/18 09:10 Resp BP 108/77 12/20/18 09:10 Pulse Ox Intake & Output 12/19/18 12/20/18 12/20/18 18:59 06:59 18:59 Weight 81.647 kg
== END | disposition home or self-care (01) ==
LOC: BARWHC3 08:04
PROVIDERS: ATTEND Surgery Plastic and Reconstructive Surgery
DX: Z48.817 Encounter for surgical aftercare following surgery on the skin and subcutaneous tissue (principal); E66.01 Morbid (severe) obesity due to excess calories; M79.3 Panniculitis, unspecified; Z68.30 Body mass index [BMI] 30.0-30.9, adult; Z98.890 Other specified postprocedural states
CPT/HCPCS: 99212

== ENCOUNTER → 2018-12-28 | Outpatient (CLI) | payer BC ==
--- NOTE | 2018-12-28 08:37 | P.PN ---
Progress Note - Text Progress Note Date: 12/28/18 To whom it may concern: Abbi Schaeffer is under my surgical care. She may return to work with pulling, lifting, bending restrictions of 4 pounds starting Tuesday, January 01. She will be off restrictions on February 03. Please call us as needed. Regards, Janessa Herr MD, FACS, FICS
--- NOTE | 2018-12-28 08:39 | P.PN ---
Subjective Progress Note Date: 12/28/18 HPI: She is doing well and is 4 weeks out from her panniculectomy. ABDOMEN: No infection ASSESSMENT: 1. Panniculitis PLAN: 1. Hydrogen peroxide for incisions 2. Use coconut oil
[2018-12-28 08:49] VITALS: BP 120/78; PULSE 72; RESP 16; TEMP 98.1; BMI 30.2
== END | disposition home or self-care (01) ==
LOC: BARWHC3 08:09
PROVIDERS: ATTEND Surgery Plastic and Reconstructive Surgery
DX: Z48.815 Encounter for surgical aftercare following surgery on the digestive system (principal); M79.3 Panniculitis, unspecified; Z98.890 Other specified postprocedural states
CPT/HCPCS: 99212

== ENCOUNTER → 2019-02-07 | Outpatient (CLI) | payer BC ==
--- NOTE | 2019-02-07 13:23 | P.PN ---
Subjective Progress Note Date: 02/07/19 HPI: She is doing very well from her panniculectomy. She reports having more GERD. ABDOMEN: All incisions granulated. No seroma. Nontender ASSESSMENT: 1. Panniculectomy 2. GERD PLAN: 1. Agree with taking Zantac for GERD 2. Patient reports reflux is worse...agreeable to proceed with EGD. 3. Zantac prescribed
[2019-02-07 13:24] VITALS: BP 146/88; PULSE 54; RESP 16; TEMP 98.1; BMI 30.6
== END | disposition home or self-care (01) ==
LOC: BARWHC3 12:50
PROVIDERS: ATTEND Surgery Plastic and Reconstructive Surgery
DX: Z48.817 Encounter for surgical aftercare following surgery on the skin and subcutaneous tissue (principal); K21.9 Gastro-esophageal reflux disease without esophagitis; Z98.890 Other specified postprocedural states
CPT/HCPCS: 99212

== ENCOUNTER 2019-03-05 10:54 | Day surgery (SDC) | payer BC ==
[2019-02-28 14:30] VITALS: BMI 29.9
--- NOTE | 2019-03-04 21:02 | P.GSHP ---
History of Present Illness H&P Date: 03/05/19 CHIEF COMPLAINT: GERD HISTORY OF PRESENT ILLNESS: The patient is a 53-year-old female who presents reports gastroesophageal reflux disease. Upper endoscopy was offered for further evaluation and management. PAST MEDICAL HISTORY: Please see list. PAST SURGICAL HISTORY: Please see list. MEDICATIONS: Please see list. ALLERGIES: Please see list. SOCIAL HISTORY: No illicit drug use FAMILY HISTORY: No reports of Crohn disease or ulcerative colitis. REVIEW OF ORGAN SYSTEMS: CONSTITUTIONAL: No reports of fevers or chills. GI: Denies any blood in stools or constipation. PHYSICAL EXAM: VITAL SIGNS: Stable GENERAL: Well-developed and pleasant in no acute distress. HEENT: No scleral icterus. Extraocular movements grossly intact. Moist buccal mucosa. NECK: Supple without lymphadenopathy. CHEST: Unlabored respirations. Equal bilateral excursions. CARDIOVASCULAR: Regular rate and rhythm. Distal 2+ pulses. ABDOMEN: Soft, nondistended. MUSCULOSKELETAL: No clubbing, cyanosis, or edema. ASSESSMENT: 1. Gastroesophageal reflux disease PLAN: 1. Recommend proceeding with an upper endoscopy Past Medical History Past Medical History: GERD/Reflux History of Any Multi-Drug Resistant Organisms: None Reported Past Surgical History: Bariatric Surgery, Cholecystectomy Additional Past Surgical History / Comment(s): lap band then gastric sleeve (Dr. Wheeler), panniculectomy 12-04-18 Past Anesthesia/Blood Transfusion Reactions: No Reported Reaction Smoking Status: Former smoker - Past Family History Mother Family Medical History: Deep Vein Thrombosis (DVT) Sister(s) Family Medical History: Cancer, Pulmonary Embolus Medications and Allergies Home Medications Medication Instructions Recorded Confirmed Type Ranitidine HCl [Zantac] 150 mg PO BID #60 tab 02/07/19 02/28/19 Rx Allergies Allergy/AdvReac Type Severity Reaction Status Date / Time No Known Allergies Allergy Verified 02/28/19 14:23
[~2019-03-05 10:54] MED LIST changes: -DEXAMETHASONE SOD PHOSPHATE 10 MG/ML 1 ML VIAL IV ONE; +LACTATED RINGERS 1,000 ML IV SCH; -MORPHINE SULFATE 4 MG/ML SYRINGE IV PRN; -ONDANSETRON 4 MG/2 ML VIAL IVP ONE; -ONDANSETRON 4 MG/2 ML VIAL IVP PRN; -ceFAZolin IN SWFI 2 GM/20 ML SYRINGE IVP ONE
[2019-03-05 11:14] VITALS: RESP 16; TEMP 98.3
[2019-03-05] MEDS ORDERED: LIDOCAINE 1% 20 ML VIAL (10MG/ML) FOR IV START INTRADERMA ONE (11:23)
[2019-03-05] MEDS ORDERED: PROPOFOL 10 MG/ML 20 ML VIAL IV ONE (12:04)
--- NOTE | 2019-03-05 12:25 | P.PCN ---
Date of Procedure: 03/05/19 Description of Procedure: PREOPERATIVE DIAGNOSIS: Status post sleeve gastrectomy. Gastroesophageal reflux disease. POSTOPERATIVE DIAGNOSIS: Status post sleeve gastrectomy. Gastroesophageal reflux disease. Erosive esophagitis, chronic. Chronic superficial gastritis. OPERATION: Esophagogastroduodenoscopy with cold forceps biopsies along the antrum. SURGEON: Janessa Herr MD ANESTHESIA: MAC. INDICATIONS: The patient is a 53-year-old female who presents with a history of sleeve gastrectomy with abdominal pain. She is over 2 years out from her bariatric procedure. Benefits and risks of the procedure were described. Informed consent was obtained. DESCRIPTION: The patient was brought into the endoscopy suite and laid in the left lateral decubitus position. An Olympus gastroscope was passed along the posterior oropharynx down to the distal esophagus where the squamocolumnar junction was at 35 centimeters from the incisors remarkable for chronic erosive esophagitis, LA grade C without ulceration. The sleeve reservoir was within normal limits. Chronic gastritis albeit mild was found along the antrum with cold biopsies obtained. The first through third portion of the duodenum was examined and unremarkable. The stomach was desufflated. The patient tolerated the procedure well. FINDINGS: No acute ulceration found along her sleeve. No corkscrewing sleeve gastrectomy. Squamocolumnar junction at 35 cm from the incisors. Gastric reservoir of sleeve gastrectomy within normal limits and without dilatation. LA grade C erosive esophagitis. No active duodenitis. Chronic gastritis. RECOMMENDATIONS: Upper endoscopy as needed. Start Protonix or omeprazole for 2 weeks. Plan - Discharge Summary Discharge Rx Participant: No New Discharge Prescriptions: New Omeprazole [PriLOSEC] 40 mg PO DAILY #14 capsule. No Action Ranitidine HCl [Zantac] 150 mg PO BID #60 tab Discharge Medication List Ranitidine HCl [Zantac] 150 mg PO BID #60 tab 02/07/19 [Rx] Omeprazole [PriLOSEC] 40 mg PO DAILY #14 capsule. 03/05/19 [Rx] Follow up Appointment(s)/Referral(s): [facility],. [[facility]-STAFF] - 03/28/19 Patient Instructions/Handouts: Gastroesophageal Reflux Disease (DC), Gastritis (DC) Activity/Diet/Wound Care/Special Instructions: Using omeprazole for 2 weeks. May take Zantac at night for breakthrough symptoms. Discharge Disposition: HOME SELF-CARE
[2019-03-05 12:56] VITALS: BP 130/77; PULSE 76
== END 2019-03-05 12:56 | disposition home or self-care (01) ==
LOC: ORWHC2ENDO 10:54
PROVIDERS: ATTEND Surgery Plastic and Reconstructive Surgery
DX: K21.0 Gastro-esophageal reflux disease with esophagitis (principal); K29.30 Chronic superficial gastritis without bleeding; Z98.84 Bariatric surgery status; K22.10 Ulcer of esophagus without bleeding; Z90.49 Acquired absence of other specified parts of digestive tract; Z79.899 Other long term (current) drug therapy
CPT/HCPCS: 88305; 43239; J2704

== ENCOUNTER → 2019-03-28 | Outpatient (CLI) | payer BC ==
[2019-03-28 16:32] VITALS: BP 132/84; PULSE 75; TEMP 98.6; BMI 30.9
--- NOTE | 2019-03-28 16:54 | P.PN ---
Subjective Progress Note Date: 03/28/19 HPI: She reports severe reflux. She reports joint pain. PLAN: 1. Went over scope 2. Omeprazole better than Zantac. 3. Follow up as needed. Objective - Vital Signs Vital signs: Vital Signs Temp 98.6 F 03/28/19 16:23 Pulse 75 03/28/19 16:23 Resp BP 132/84 03/28/19 16:23 Pulse Ox Intake & Output 03/27/19 03/28/19 03/28/19 18:59 06:59 18:59 Weight 84.232 kg
== END ==
LOC: BARWHC3 15:45
PROVIDERS: ATTEND Surgery Plastic and Reconstructive Surgery
DX: K21.9 Gastro-esophageal reflux disease without esophagitis (principal); M25.50 Pain in unspecified joint; Z79.899 Other long term (current) drug therapy
CPT/HCPCS: 99211

== ENCOUNTER → 2019-07-25 | Outpatient (CLI) | payer BC ==
[2019-07-25 16:39] VITALS: BP 129/80; PULSE 63; TEMP 98; BMI 31.6
--- NOTE | 2019-07-25 16:57 | P.PN ---
Subjective Progress Note Date: 07/25/19 has weight gain. went over antiinflammatory. needs esophogram for GERD eval. Doing well with omeprazole. Objective - Vital Signs Vital signs: Vital Signs Temp 98 F 07/25/19 16:37 Pulse 63 07/25/19 16:37 Resp BP 129/80 07/25/19 16:37 Pulse Ox Intake & Output 07/24/19 07/25/19 07/25/19 18:59 06:59 18:59 Weight 86.183 kg
== END | disposition home or self-care (01) ==
LOC: BARWHC3 15:55
PROVIDERS: ATTEND Surgery Plastic and Reconstructive Surgery
DX: R63.5 Abnormal weight gain (principal); Z79.899 Other long term (current) drug therapy
CPT/HCPCS: 99211

== ENCOUNTER → 2020-06-19 | Outpatient (CLI) | payer BC ==
--- NOTE | 2020-06-20 12:07 | MM ---
Reason for exam: screening (asymptomatic). Last mammogram was performed 2 years and 5 months ago. History: Patient is postmenopausal. Physical Findings: A clinical breast exam by your physician is recommended on an annual basis and results should be correlated with mammographic findings. MG Screening Mammo w CAD Bilateral CC and MLO view(s) were taken. Prior study comparison: January 06, 2018, bilateral MG 3d screening mammo w/cad. July 11, 2013, mammogram. The breast tissue is heterogeneously dense. This may lower the sensitivity of mammography. There is no discrete abnormality. ASSESSMENT: Negative, BI-RAD 1 RECOMMENDATION: Routine screening mammogram of both breasts in 1 year.
== END | disposition home or self-care (01) ==
LOC: RADMAMWWP 16:42
PROVIDERS: ATTEND Family Medicine
DX: Z12.31 Encounter for screening mammogram for malignant neoplasm of breast (principal)
CPT/HCPCS: 77067

== ENCOUNTER 2021-01-08 10:06 | Observation (INO) | payer BC ==
[2021-01-08] MEDS ORDERED: ASPIRIN 81 MG PO STA (10:13)
[2021-01-08 10:37] LABS: Basophils # (A) 0.1 k/uL (0-0.2); Basophils % (A) 1 %; Eosinophils # (A) 0.1 k/uL (0-0.7); Eosinophils % (A) 2 %; HCT 42.6 % (34.0-46.0); HGB 14.6 gm/dL (11.4-16.0); Lymphocytes # (A) 2.9 k/uL (1.0-4.8); Lymphocytes % (A) 45 %; MCH 32.4 pg (25.0-35.0); MCHC 34.2 g/dL (31.0-37.0); MCV 94.5 fL (80.0-100.0); Mean Platelet Volume 6.7; Monocytes # (A) 0.4 k/uL (0-1.0); Monocytes % (A) 7 %; Neutrophils # (A) 2.8 k/uL (1.3-7.7); Neutrophils % (A) 43 %; Platelet Count 231 k/uL (150-450); RBC 4.51 m/uL (3.80-5.40); RDW 12.5 % (11.5-15.5); WBC 6.4 k/uL (3.8-10.6)
--- NOTE | 2021-01-08 10:41 | XR ---
EXAMINATION TYPE: XR chest 2V DATE OF EXAM: 01/08/2021 COMPARISON: 01/06/2017 HISTORY: Shortness of breath TECHNIQUE: Frontal and lateral views of the chest are obtained. FINDINGS: Scattered senescent parenchymal changes noted. No evidence for infiltrate. No evidence for atelectasis. Heart size is stable. Mediastinal structures are stable and grossly unremarkable. No evidence for hilar prominence. Degenerative changes dorsal spine. IMPRESSION: 1. No evidence for acute pulmonary disease.
--- NOTE | 2021-01-08 10:41 | ED ---
Chest Pain HPI - General Chief Complaint: Chest Pain Stated Complaint: Back/Chest Pain Time Seen by Provider: 01/08/21 10:13 Source: patient, RN notes reviewed Mode of arrival: ambulatory Limitations: no limitations - History of Present Illness Initial Comments: 55-year-old female presents emergency from chief complaint of chest pain, back pain. Patient states that she has sudden onset of pain in her back, rib region there is a across her chest in the right side of her neck. Patient states it lasted approximately 10 minutes and now has resolved is symptom-free. No abdominal complaints and leg pain no paresthesias. Patient states that she had an episode like this in the past in which she was seen by cardiology for stress test, echocardiogram found out to have been related to her gallbladder in which she had a cholecystectomy. Patient does not have a history of hypertension hyperlipidemia no diabetes no prior aortic issues. Patient states pain is very intense, pressure-like, took her breath away. - Related Data Home Medications Medication Instructions Recorded Confirmed Ibuprofen [Motrin] 800 mg PO TID PRN 01/08/21 01/08/21 Omeprazole 20 mg PO HS 01/08/21 01/08/21 Allergies Allergy/AdvReac Type Severity Reaction Status Date / Time No Known Allergies Allergy Verified 01/08/21 11:52 Review of Systems ROS Statement: Those systems with pertinent positive or pertinent negative responses have been documented in the HPI. ROS Other: All systems not noted in ROS Statement are negative. EKG Findings - EKG Comments: EKG Findings:: EKG performed at 10:15 normal sinus rhythm is rate of 61. AK 136 QRS 86 QT/QTC/14 Past Medical History Past Medical History: GERD/Reflux Additional Past Medical History / Comment(s): chronic erosive acid reflux (dx with EGD in February 2019) History of Any Multi-Drug Resistant Organisms: None Reported Past Surgical History: Bariatric Surgery, Cholecystectomy Additional Past Surgical History / Comment(s): lap band then gastric sleeve (Dr. Wheeler), panniculectomy 3- Past Anesthesia/Blood Transfusion Reactions: No Reported Reaction Past Psychological History: No Psychological Hx Reported Past Alcohol Use History: Occasional Past Drug Use History: None Reported - Past Family History Mother Family Medical History: Deep Vein Thrombosis (DVT) Sister(s) Family Medical History: Cancer, Pulmonary Embolus General Exam Limitations: no limitations General appearance: alert, in no apparent distress Head exam: Present: atraumatic, normocephalic, normal inspection Eye exam: Present: normal appearance, PERRL, EOMI. Absent: scleral icterus, conjunctival injection, periorbital swelling ENT exam: Present: normal exam, normal oropharynx, mucous membranes moist Neck exam: Present: normal inspection, full ROM. Absent: tenderness, lymphadenopathy Respiratory exam: Present: normal lung sounds bilaterally. Absent: respiratory distress, wheezes, rales, rhonchi, stridor Cardiovascular Exam: Present: regular rate, normal rhythm, normal heart sounds. Absent: systolic murmur, diastolic murmur, rubs, gallop, clicks GI/Abdominal exam: Present: soft, normal bowel sounds. Absent: distended, tenderness, guarding, rebound, rigid Neurological exam: Present: alert, oriented X3 Skin exam: Present: warm, dry, intact, normal color. Absent: rash Course Vital Signs 01/08/21 01/08/21 10:07 11:50 Temperature 98 F Pulse Rate 62 80 Respiratory 18 18 Rate Blood Pressure 149/80 128/82 O2 Sat by Pulse 99 100 Oximetry Chest Pain MDM - [facility] EKG labs and chest x-ray reviewed no air Jamari's time though patient had very concerning cardiac symptoms. Patient will be admitted for further cardiology evaluation echocardiogram and repeat troponin. Disposition Clinical Impression: Chest pain Disposition: ADMITTED IP TO THIS HOSP Condition: Fair Referrals: Herve Tapia DO [Primary Care Provider] - 1-2 days
[2021-01-08 10:48] LABS: ALT 24 U/L (4-34); AST 23 U/L (14-36); African American GFR (CKD) >90 (>60 ml/min/1.73 sqM); Albumin 4.6 g/dL (3.5-5.0); Alkaline Phosphatase 56 U/L (38-126); Anion Gap 8 mmol/L; Blood Urea Nitrogen 19 mg/dL (7-17); Calcium 9.9 mg/dL (8.4-10.2); Carbon Dioxide 29 mmol/L (22-30); Chloride 103 mmol/L (98-107); Glucose 87 mg/dL (74-99); Lipase 105 U/L (23-300); Non-African American GFR(CKD) >90 (>60 ml/min/1.73 sqM); Potassium 4.1 mmol/L (3.5-5.1); Sodium 140 mmol/L (137-145); Total Bilirubin 0.6 mg/dL (0.2-1.3); Total Protein 7.3 g/dL (6.3-8.2)
[2021-01-08 10:52] LABS: D-Dimer 0.19 mg/L FEU (<0.60); Prothrombin Time 10.4 sec (9.0-12.0)
[2021-01-08] MEDS ORDERED: NITROGLYCERIN SL TABS 0.4 MG TAB SUBLINGUAL PRN (12:06)
[2021-01-08] MEDS ORDERED: HEPARIN SODIUM 1,000 UN/ML (10ML VL) IV ONE (12:06)
[2021-01-08] MEDS ORDERED: HEPARIN SOD,PORK IN 0.45% NACL 25,000 UNIT in 0.45% NACL 1 250ML.BAG IV SCH (12:15)
--- NOTE | 2021-01-08 16:18 | P.HPIM ---
History of Present Illness H&P Date: 01/08/21 55 years old female with past medical history of GERD, LAP-BAND followed by gastric sleeve followed by Yanira colectomy with Dr. Wheeler comes in with sharp substernal chest pain on the left radiating down to the left arm, her jaw and her back this morning while she was on the phone talking to her daughter. Patient denies any shortness of breath or sweating associated with it. Patient denies any recent stress or previous such episodes. Symptoms lasted for 15 minutes and improved on its own. Symptoms were gone by the time patient came to the hospital. Patient does heart flashes even though she had menopause many years ago. Patient denies any previous episode. She had stress test done in 2019 that was negative for ACS. Patient follows regularly with her primary care physician and saw her primary care physician 1 month back. EKG obtained in the ER was negative for ACS. Troponin 1 is negative. Chest x-ray was negative for any acute pulmonary disease. COVID 19 was negative. Assessment patient's lab patient had an unremarkable CMP and CBC Review of Systems Constitutional: Denies chills, Denies fever, Denies lethargy, Denies malaise, Denies poor appetite, Denies weakness, Denies weight loss Eyes: denies decreased vision, denies diplopia, denies discharge, denies pain Ears: deny: decreased hearing Ears, nose, mouth and throat: Denies dental pain, Denies headache, Denies nasal discharge, Denies nose pain Cardiovascular: chest pain, Denies decreased exercise tolerance, Denies edema, Denies high blood pressure, Denies irregular heart beat, Denies palpitations, Denies paroxysmal nocturnal dyspnea, Denies rapid heart beat, Denies shortness of breath Respiratory: Denies congestion, Denies cough, Denies cough with sputum, Denies dyspnea, Denies home oxygen, Denies wheezing Gastrointestinal: Denies abdominal pain, Denies change in bowel habits, Denies coffee ground emesis, Denies early satiety, Denies excessive gas, Denies heartburn, Denies hematemesis, Denies hematochezia, Denies loss of appetite, Den ies nausea, Denies vomiting Genitourinary: Denies dysuria, Denies flank pain, Denies kidney stones, Denies menorrhagia, Denies urgency, Denies urinary frequency Musculoskeletal: Denies gait dysfunction, Denies limitation of motion, Denies morning stiffness, Denies muscle cramps Integumentary: Denies rash, Denies wounds, Denies brittle nails, Denies change in hair/nails, Denies darkening of skin Neurological: Denies balance difficulties, Denies change in speech, Denies double vision, Denies gait dysfunction, Denies loss of vision, Denies motor disturbance, Denies numbness, Denies paralysis, Denies paresthesias, Denies seizures Psychiatric: Denies anxiety, Denies depression Endocrine: Denies excessive sweating, Denies excessive thirst, Denies high blood sugars, Denies palpitations endorses hot flashes Hematologic/Lymphatic: Denies easy bruising, Denies lymphadenopathy Past Medical History Past Medical History: GERD/Reflux Additional Past Medical History / Comment(s): chronic erosive acid reflux (dx with EGD in February 2019) History of Any Multi-Drug Resistant Organisms: None Reported Past Surgical History: Bariatric Surgery, Cholecystectomy Additional Past Surgical History / Comment(s): lap band then gastric sleeve (Dr. Wheeler), panniculectomy 12-04-18 Past Anesthesia/Blood Transfusion Reactions: No Reported Reaction Past Psychological History: No Psychological Hx Reported Smoking Status: Former smoker Past Alcohol Use History: Occasional Additional Past Alcohol Use History / Comment(s): quit smoking 29 years ago Past Drug Use History: None Reported - Past Family History Mother Family Medical History: Deep Vein Thrombosis (DVT) Sister(s) Family Medical History: Cancer, Pulmonary Embolus Medications and Allergies Home Medications Medication Instructions Recorded Confirmed Type Ibuprofen [Motrin] 800 mg PO TID PRN 01/08/21 01/08/21 History Omeprazole 20 mg PO HS 01/08/21 01/08/21 History Allergies Allergy/AdvReac Type Severity Reaction Status Date / Time No Known Allergies Allergy Verified 01/08/21 11:52 Physical Exam Vitals: Vital Signs Temp Pulse Pulse Resp BP BP Pulse Ox 01/08/21 15:12 97.6 F 59 L 16 124/79 98 01/08/21 13:22 97.6 F 59 L 16 124/79 98 01/08/21 13:16 98.1 F 55 L 16 129/81 99 01/08/21 11:50 80 18 128/82 100 01/08/21 10:07 98 F 62 18 149/80 99 Intake and Output 01/08/21 01/08/21 01/08/21 06:59 14:59 22:59 Other: # Voids 1 Weight 79.379 kg - Constitutional General appearance: cooperative, no acute distress, obese - EENT Eyes: anicteric sclerae, PERRLA, normal appearance ENT: hearing grossly normal - Neck Neck: no lymphadenopathy, normal ROM, no other, no rigidity, no stridor, no thyromegaly - Respiratory Respiratory: bilateral: CTA, negative: diminished, dullness, rales, rhonchi - Cardiovascular Rhythm: regular Heart sounds: normal: S1, S2 Abnormal Heart Sounds: no systolic murmur, no diastolic murmur, no rub, no S3 Gallop, no S4 Gallop, no click, no other - Gastrointestinal General gastrointestinal: normal bowel sounds, soft - Integumentary Integumentary: no rash - Neurologic Neurologic: CNII-XII intact - Musculoskeletal Musculoskeletal: gait normal, strength equal bilaterally - Psychiatric Psychiatric: A&O x's 3, appropriate affect Results CBC & Chem 7: 01/08/21 10:26 01/08/21 10:26 Labs: Abnormal Lab Results - Last 24 Hours (Table) 01/08/21 Range/Units 10:26 BUN 19 H (7-17) mg/dL Thrombosis Risk Factor Assmnt - DVT/VTE Prophylaxis DVT/VTE Prophylaxis: Pharmacologic Prophylaxis ordered - Choose All That Apply Each Factor Represents 1 point: Age 41-60 years Other Risk Factors: No Thrombosis Risk Factor Assessment Total Risk Factor Score: 1 Thrombosis Risk Factor Assessment Level: Low Risk Assessment and Plan Plan: #1 acute substernal chest pain likely cardiac. EKG negative. Echo ordered. Troponin 3 ordered. Cardiology consult placed. Aspirin started 325 mg by mouth daily. Heparin drip. Patient had a normal stress test a few years ago. Would benefit from stress test to rule out ACS. #2 history of gastric sleeve follows Dr. Summer paez #3 history of GERD continue omeprazole #4 CODE STATUS full code #5 DVT prophylaxis: Heparin drip #6 disposition likely discharge tomorrow
[2021-01-09 07:12] VITALS: TEMP 97.6
[2021-01-09 07:20] LABS: Cholesterol 189 mg/dL (<200); HDL Cholesterol 93 mg/dL (40-60); LDL Cholesterol,Calculated 89 mg/dL (0-99); Triglycerides 37 mg/dL (<150)
[2021-01-09] MEDS ORDERED: PANTOPRAZOLE 40 MG TABLET PO SCH (07:30)
[2021-01-09] MEDS ORDERED: ASPIRIN 325 MG TAB PO SCH (09:00)
--- NOTE | 2021-01-09 09:42 | P.CRDCN ---
History of Present Illness History of present illness: HISTORY OF PRESENTING ILLNESS This is a pleasant 55-year-old female past medical history significant for GERD, History of acute cholelithiasis s/p cholecystectomy, lap band followed by Short sleeve followed by colectomy with Dr. Wheeler. Follows in the office with Dr. Mcnair . We have been asked to see in consultation for chest pain. Patient is seen and examined at bedside, in no acute distress. States yesterday around 8:00am started having chest pressure, started in the center of her chest around her bra line, radiating to her back and right side of jaw. She has had this pain before. Associated symptoms include palpitations and tingling down her left hand. No aggravating symptoms. Pain lasted 15 minutes. Nothing relieved the pain. She didnt take anything for the pain. Pressure is non-exertional. She denies shortness of breath, lower extremity edema, fatigue, weakness, lighthea dedness, syncope. Denies history of Diabetes, hypertension, [place], or stroke. In 11/2018 patient had similar pain and exercise stress test was performed and was negative. Most recent echocardiogram 11/2018 revelaed EF 55%, mild MR, mild TR. Currently not on any home cardiac medications. DIAGNOSTICS EKG reveals sinus rhythm, heart rate 61, no significant STT wave abnormalities. Prior EKG in 2019 showed sinus bradycardia heart rate 52, no significant STT wave abnormalities Telemetry tracings indicate sinus mechanism HR 60-70s, occasional HR 50s Chest xray no acute cardiopulmonary process Laboratory reviewed, troponins negative 3, d-dimer negative, TSH within normal limits, renal function stable serum creatinine 0.65, BUN 19, sodium 140, potassium 4.1, CBC unremarkable REVIEW OF SYSTEMS At the time of my exam: CONSTITUTIONAL: Denies fever or chills. CARDIOVASCULAR: +chest pain, +palpitations Denies shortness of breath, orthopnea, PND RESPIRATORY: Denies cough. GASTROINTESTINAL: Denies abdominal pain, diarrhea, constipation, nausea or vomiting. MUSCULOSKELETAL: Denies myalgias. NEUROLOGIC: +tingling left hand Denies numbness, headacbe or weakness. ENDOCRINE: Denies fatigue, weight change, polydipsia or polyurina. GENITOURINARY: Denies burning, hematuria or urgency with micturation. HEMATOLOGIC: Denies history of anemia or bleeding. PHYSICAL EXAMINATION CONSTITUTIONAL: No apparent distress. HEENT: Head is normocephalic. Pupils are equal, round. Sclerae anicteric. Mucous membranes of the mouth are moist. No JVD. No carotid bruit. CHEST EXAMINATION: Lungs are clear to auscultation. No chest wall tenderness is noted on palpation or with deep breathing. HEART EXAMINATION: Regular rate and rhythm. S1, S2 heard. No murmurs, gallops or rub. ABDOMEN: Soft, nontender. Positive bowel sounds. EXTREMITIES: 2+ peripheral pulses, no lower extremity edema and no calf tende rness. SKIN: intact NEUROLOGIC EXAMINATION: Patient is awake, alert and oriented x3. ASSESSMENT Chest pain, atypical acute coronary syndrome has ruled out GERD History of cholelithiasis s/p cholecystectomy History of lap band PLAN An acute coronary event has been ruled out with no EKG evidence of ischemia and negative cardiac enzymes. 2D echocardiogram and doppler study ordered to assess cardiac structure and function -will review results Perform exercise stress test to assess for stress induced cardiac ischemia. If normal, patient is ok to be discharged from cardiology perspective. If abnormal will consider coronary angiography. Follow up with Dr. Mcnair. Nurse Practitioner note has been reviewed, I agree with a documented findings and plan of care. Patient was seen and examined. Past Medical History Past Medical History: GERD/Reflux Additional Past Medical History / Comment(s): chronic erosive acid reflux (dx with EGD in February 2019) History of Any Multi-Drug Resistant Organisms: None Reported Past Surgical History: Bariatric Surgery, Cholecystectomy Additional Past Surgical History / Comment(s): lap band then gastric sleeve (Dr. Wheeler), panniculectomy 12-04- Past Anesthesia/Blood Transfusion Reactions: No Reported Reaction Past Psychological History: No Psychological Hx Reported Smoking Status: Former smoker Past Alcohol Use History: Occasional Additional Past Alcohol Use History / Comment(s): quit smoking 29 years ago Past Drug Use History: None Reported - Past Family History Mother Family Medical History: Deep Vein Thrombosis (DVT) Sister(s) Family Medical History: Cancer, Pulmonary Embolus Medications and Allergies Home Medications Medication Instructions Recorded Confirmed Type Ibuprofen [Motrin] 800 mg PO TID PRN 01/08/21 01/08/21 History Omeprazole 20 mg PO HS 01/08/21 01/08/21 History Allergies Allergy/AdvReac Type Severity Reaction Status Date / Time No Known Allergies Allergy Verified 01/08/21 11:52 Physical Exam Vitals: Vital Signs Temp Pulse Pulse Resp BP BP Pulse Ox 01/09/21 02:00 97.9 F 65 16 106/71 96 01/08/21 20:00 97.8 F 65 16 125/74 97 01/08/21 15:12 97.6 F 59 L 16 124/79 98 01/08/21 13:22 97.6 F 59 L 16 124/79 98 01/08/21 13:16 98.1 F 55 L 16 129/81 99 01/08/21 11:50 80 18 128/82 100 01/08/21 10:07 98 F 62 18 149/80 99 Intake and Output 01/08/21 01/08/21 01/09/21 14:59 22:59 06:59 Intake Total 64.294 Balance 64.294 Intake: Intake, IV Titration 64.294 Amount Heparin Sod,Pork in 0.45% 64.294 NaCl 25,000 unit In 0.45 % NaCl 1 250ml.bag @ 12 UNITS/KG/HR 9.525 mls/hr IV .Q24H [facility] Rx#: [id number] Other: Voiding Method Toilet # Voids 1 2 2 Weight 79.379 kg Results 01/08/21 10:26 01/08/21 10:26 Cardiac Enzymes 01/08/21 01/08/21 01/08/21 Range/Units 10:26 10:26 13:58 AST 23 (14-36) U/L Troponin I <0.012 <0.012 (0.000-0.034) ng/mL 01/08/21 Range/Units 16:47 AST (14-36) U/L Troponin I <0.012 (0.000-0.034) ng/mL Coagulation 01/08/21 01/08/21 Range/Units 10:26 18:40 PT 10.4 (9.0-12.0) sec APTT 22.0 65.6 H (22.0-30.0) sec CBC 01/08/21 Range/Units 10:26 WBC 6.4 (3.8-10.6) k/uL RBC 4.51 (3.80-5.40) m/uL Hgb 14.6 (11.4-16.0) gm/dL Hct 42.6 (34.0-46.0) % Plt Count 231 (150-450) k/uL Comprehensive Metabolic Panel 01/08/21 Range/Units 10:26 Sodium 140 (137-145) mmol/L Potassium 4.1 (3.5-5.1) mmol/L Chloride 103 (98-107) mmol/L Carbon Dioxide 29 (22-30) mmol/L BUN 19 H (7-17) mg/dL Creatinine 0.65 (0.52-1.04) mg/dL Glucose 87 (74-99) mg/dL Calcium 9.9 (8.4-10.2) mg/dL AST 23 (14-36) U/L ALT 24 (4-34) U/L Alkaline Phosphatase 56 (38-126) U/L Total Protein 7.3 (6.3-8.2) g/dL Albumin 4.6 (3.5-5.0) g/dL Current Medications Generic Name Dose Route Start Last Admin Trade Name Freq PRN Reason Stop Dose Admin Aspirin 325 mg 01/09/21 09:00 Aspirin 325 Mg Tab PO DAILY [facility] Heparin Sodium/Sodium Chloride 250 mls @ 9.525 mls/hr 01/08/21 12:15 01/08/21 19:34 25,000 unit/ Sodium Chloride IV 12 units/kg/hr .Q24H [facility] 9.525 mls/hr Titration Protocol 12 UNITS/KG/HR Nitroglycerin 0.4 mg 01/08/21 12:06 Nitroglycerin Sl Tabs 0.4 Mg Tab SUBLINGUAL Q5M PRN Chest Pain Pantoprazole Sodium 40 mg 01/09/21 07:30 Pantoprazole 40 Mg Tablet PO AC-BRKFST [facility] Intake and Output 01/08/21 01/08/21 01/09/21 14:59 22:59 06:59 Intake Total 64.294 Balance 64.294 Intake: Intake, IV Titration 64.294 Amount Heparin Sod,Pork in 0.45% 64.294 NaCl 25,000 unit In 0.45 % NaCl 1 250ml.bag @ 12 UNITS/KG/HR 9.525 mls/hr IV .Q24H [facility] Rx#: [id number] Other: Voiding Method Toilet # Voids 1 2 2 Weight 79.379 kg Patient Weight 01/09/21 06:59 Weight 79.379 kg 01/08/21 10:26 01/08/21 10:26
--- NOTE | 2021-01-09 09:59 | ECHOF ---
Referral Reason:chest pain MEASUREMENTS -------- HEIGHT: 165.1 cm WEIGHT: 79.4 kg BP: IVSd: 1.3 cm (0.6 - 1.1) LVIDd: 3.1 cm (3.9 - 5.3) LVPWd: 1.4 cm (0.6 - 1.1) IVSs: 1.8 cm LVIDs: 1.7 cm LVPWs: 1.6 cm LAESV Index (A-L): 11.25 ml/m Ao Diam: 3.5 cm (2.0 - 3.7) AV Cusp: 1.9 cm (1.5 - 2.6) LA Diam: 2.9 cm (2.7 - 3.8) MV EXCURSION: 15.271 mm (> 18.000) MV EF SLOPE: 49 mm/s (70 - 150) EPSS: 0.4 cm MV E Skip: 1.01 m/s MV DecT: 191 ms MV A Skip: 1.00 m/s MV E/A Ratio: 1.01 AR PHT: 505 ms RAP: 5.00 mmHg RVSP: 21.29 mmHg FINDINGS -------- This was a technically good study. The left ventricular size is normal. There is mild concentric left ventricular hypertrophy. Overa ll left ventricular systolic function is normal with, an EF between 55 - 60 %. The diastolic fillin g pattern is normal for the age of the patient 13.30. The right ventricle is normal in size. The left atrial size is normal. Normal LA size by volume 22+/-6 ml/m2. The right atrial size is normal. The aortic valve is trileaflet and appears structurally normal. Trace amount of aortic regurgitatio n. The mitral valve is normal. Mild mitral regurgitation is present. The tricuspid valve appears structurally normal. Mild tricuspid regurgitation present. Right vent ricular systolic pressure is normal at < 35 mmHg. There is no pulmonic regurgitation present. The aortic root size is normal. Normal inferior vena cava with normal inspiratory collapse consistent with estimated right atrial pre ssure of 5 mmHg. There is no pericardial effusion. CONCLUSIONS -------- 1. The left ventricular size is normal. 2. There is mild concentric left ventricular hypertrophy. 3. Overall left ventricular systolic function is normal with, an EF between 55 - 60 %. 4. The diastolic filling pattern is normal for the age of the patient 13.30 5. Trace amount of aortic regurgitation. 6. Mild mitral regurgitation is present. 7. Mild tricuspid regurgitation present. 8. There is no pericardial effusion. MUCK MINER: Elizabet Potter RDCS
--- NOTE | 2021-01-09 12:58 | P.DS ---
Providers Date of admission: 01/08/21 12:13 Attending physician: Christina Márquez MD Consults: 01/08/21 12:07 Consult Physician Urgent Consulting Provider: Gary Whitfield Consult Reason/Comments: chest salas Do you want consulting provider notified?: Yes Primary care physician: [facility] Course: 55 years old female with past medical history of GERD, LAP-BAND followed by gastric sleeve followed by Yanira colectomy with Dr. Bradyania comes in with sharp substernal chest pain on the left radiating down to the left arm, her jaw and her back this morning while she was on the phone talking to her daughter. Patient denies any shortness of breath or sweating associated with it. Patient denies any recent stress or previous such episodes. Symptoms lasted for 15 minutes and improved on its own. Symptoms were gone by the time patient came to the hospital. Patient does heart flashes even though she had menopause many years ago. Patient denies any previous episode. She had stress test done in 2018 that was negative for ACS. Patient follows regularly with her primary care physician and saw her primary care physician 1 month back. EKG obtained in the ER was negative for ACS. Troponin 1 is negative. Chest x-ray was negative for any acute pulmonary disease. COVID 19 was negative. Assessment patient's lab patient had an unremarkable CMP and CBC 01/09 patient examined bedside. The chest pain has gone away. Patient underwent stress echo and echocardiogram this morning. Echocardiogram suggest EF of 55- 60%. Mild valvular abnormalities noted. Mild concentric left ventricle hypertrophy noted. Stress echo was negative. On detailed history patient does document bilateral shoulder osteoarthritis and degenerative disc disease of the back. She did undergo steroid injection as one week ago but denies lifting anything heavy for the past week. She denies any vigorous exercise or trauma to the back. She continues to have numbness involving scapular spine. Labs s uggestive LDL of 89 triglyceride 37 HDL 93. TSH is normal troponin 2 normal. EKG is normal. Patient will be discharged with follow-up with cardiology as outpatient. Patient advised to hold off Motrin and physical therapy recommended. Patient to return to the ER if symptoms recur Physical exam - Constitutional General appearance: cooperative, no acute distress, obese - Neck Neck: no lymphadenopathy, normal ROM - Respiratory Respiratory: bilateral: CTA, negative: diminished, dullness, rales, rhonchi, numbness involving the left scapular wing - Cardiovascular Rhythm: regular Heart sounds: normal: S1, S2 Abnormal Heart Sounds: no systolic murmur, no diastolic murmur - Gastrointestinal General gastrointestinal: normal bowel sounds, soft - Integumentary Integumentary: no rash - Musculoskeletal Musculoskeletal: gait normal, strength equal bilaterally - Psychiatric Psychiatric: A&O x's 3, appropriate affect Discharge diagnoses #1 atypical chest pain, ACS ruled out #2 GERD #3 history of lap band and gastric sleeve #4 history of degenerative disc disease #5 history of shoulder osteoarthritis bilateral Disposition home with self-care Patient Condition at Discharge: Fair Plan - Discharge Summary Discharge Rx Participant: No New Discharge Prescriptions: Continue Omeprazole 20 mg PO HS Discontinued Ibuprofen [Motrin] 800 mg PO TID PRN PRN Reason: Pain Discharge Medication List Omeprazole 20 mg PO HS 01/08/21 [History] Follow up Appointment(s)/Referral(s): Jackson Mcnair MD [STAFF PHYSICIAN] - 2 Weeks Herve Tapia DO [Primary Care Provider] - 1-2 days Discharge Disposition: HOME SELF-CARE
--- NOTE | 2021-01-09 13:27 | EST ---
EXERCISE STRESS AGE: 55 SEX: Female HT: 5'5" WT: 175 lbs. PROTOCOL: Wally STAGE: 3 DURATION OF EXERCISE: 9 minutes HEART RATE REST: 105 BLOOD PRESSURE REST: 188/77 MAXIMUM HEART RATE ACHIEVED: 145 MAXIMUM BLOOD PRESSURE: 171/91 85% MPHR: 139 100% MPHR: 163 METS: 7.1 INDICATIONS: Chest pain. CLINICAL INFORMATION: STRESS DATA: Heart rate 105, pressure is 188/77 mmHg. Baseline EKG showed sinus mechanism. The patient exercised on the treadmill according to Wally protocol for a total of 9 minutes and achieved 7.1 METs. Max heart rate was 145, which is about 88% of maximum predicted heart rate and maximum blood pressure was 171/91 mmHg. Clinically, the patient developed no chest pain or chest discomfort. The EKG did not show any significant ST or T-wave abnormalities concerning for ischemia. CONCLUSION: 1. Excellent exercise tolerance. 2. Normal EKG in response to exercise. 3. Overall normal stress test for the patient. MMODL / IJN: [id number] /
[2021-01-09 13:56] VITALS: BP 108/76; PULSE 59; RESP 18
== END 2021-01-09 14:10 | disposition home or self-care (01) ==
LOC: EC 10:06 → 6NMEDSUR 12:13
PROVIDERS: ADMIT Internal Medicine; ATTEND Internal Medicine
DX: R07.89 Other chest pain (principal); R07.2 Precordial pain; R20.0 Anesthesia of skin; M54.9 Dorsalgia, unspecified; K21.9 Gastro-esophageal reflux disease without esophagitis; M19.011 Primary osteoarthritis, right shoulder; M19.012 Primary osteoarthritis, left shoulder; E66.9 Obesity, unspecified; Z68.29 Body mass index [BMI] 29.0-29.9, adult; Z20.822 Contact with and (suspected) exposure to COVID-19; Z98.84 Bariatric surgery status; Z90.49 Acquired absence of other specified parts of digestive tract; Z79.899 Other long term (current) drug therapy; Z79.1 Long term (current) use of non-steroidal anti-inflammatories (NSAID); Z87.891 Personal history of nicotine dependence; Z82.49 Family history of ischemic heart disease and other diseases of the circulatory system; Z80.9 Family history of malignant neoplasm, unspecified
CPT/HCPCS: 96366 ×2; 93005 ×2; 96376; 96365; 99285; 36415; 94760; 93017; 93306; 85379; 80061; 80053; 84443; 83690; 83735; 84484; 85025; 85610; 85730 ×2; 87635; 71046; G0378 ×2; J1644 ×2

== ENCOUNTER → 2021-07-03 | Outpatient (CLI) | payer BC ==
[2021-07-03 09:06] LABS: HCT 38.3 % (34.0-46.0); HGB 12.9 gm/dL (11.4-16.0); MCH 32.6 pg (25.0-35.0); MCHC 33.7 g/dL (31.0-37.0); MCV 96.5 fL (80.0-100.0); Platelet Count 196 k/uL (150-450); RBC 3.96 m/uL (3.80-5.40); RDW 12.1 % (11.5-15.5); WBC 6.2 k/uL (3.8-10.6)
[2021-07-03 09:17] LABS: ALT 10 U/L (4-34); AST 20 U/L (14-36); African American GFR (CKD) >90 (>60 ml/min/1.73 sqM); Albumin 4.1 g/dL (3.5-5.0); Alkaline Phosphatase 54 U/L (38-126); Anion Gap 7 mmol/L; Blood Urea Nitrogen 17 mg/dL (7-17); Calcium 9.5 mg/dL (8.4-10.2); Carbon Dioxide 28 mmol/L (22-30); Chloride 104 mmol/L (98-107); Glucose 94 mg/dL (74-99); Non-African American GFR(CKD) >90 (>60 ml/min/1.73 sqM); Potassium 4.3 mmol/L (3.5-5.1); Sodium 139 mmol/L (137-145); Total Bilirubin 0.7 mg/dL (0.2-1.3); Total Protein 6.7 g/dL (6.3-8.2)
[2021-07-03 09:22] LABS: Appearance,Urine Clear (Clear); Bilirubin,Urine Negative (Negative); Blood,Urine Negative (Negative); Color,Urine Light Yellow; Glucose,Urine (UA) Negative (Negative); Ketones,Urine Negative (Negative); Leukocyte Esterase,Urine Negative (Negative); Nitrite,Urine Negative (Negative); PH, Urine 7.5 (5.0-8.0); Protein,Urine Negative (Negative); Specific Gravity,Urine 1.004 (1.001-1.035); Urobilinogen,Urine <2.0 mg/dL (<2.0)
[2021-07-03 09:27] LABS: INR 0.9 (<1.2); Partial Thromboplastin Time 23.3 sec (22.0-30.0); Prothrombin Time 10.1 sec (9.0-12.0)
== END | disposition home or self-care (01) ==
LOC: LABPAT 08:04
PROVIDERS: ATTEND Orthopaedic Surgery Sports Medicine
DX: Z01.812 Encounter for preprocedural laboratory examination (principal); M17.11 Unilateral primary osteoarthritis, right knee
CPT/HCPCS: 80053; 81003; 85027; 85610; 85730; 87070

== ENCOUNTER 2021-07-23 06:24 | Observation (INO) | payer BC ==
[2021-07-06 12:31] VITALS: BMI 29.4
[~2021-07-23 06:24] MED LIST changes: +ACETAMINOPHEN TAB 500 MG TAB PO PRN; +GABAPENTIN 300 MG CAP PO PRN; -LACTATED RINGERS 1,000 ML IV SCH; +MELOXICAM 7.5 MG TAB PO PRN; +ONDANSETRON 4 MG/2 ML VIAL IVP PRN; +ROPIVACAINE 246.25 MG, EPINEPHrine 0.5 MG, KETOROLAC 30 MG, cloNIDine HCL/PF 80 MCG, WA... MISCELLANE PRN; +ROPIVACAINE/EPI/CLONIDINE/KET 50 ML SYRINGE MISCELLANE PRN; +TRANEXAMIC ACID 1,000 MG in SODIUM CHLORIDE 0.9% 100 ML IVPB PRN
[2021-07-23] MEDS ORDERED: LACTATED RINGERS 1,000 ML IV SCH (06:41)
[2021-07-23] MEDS ORDERED: MIDAZOLAM 2 MG/2 ML VIAL IV PRN (06:41)
[2021-07-23] MEDS ORDERED: HYDROmorphone 0.5 MG/0.5 ML SYRINGE IVP PRN ×2 (07:00→10:11)
[2021-07-23] MEDS ORDERED: LIDOCAINE 1% (10MG/ML) FOR IV START INTRADERMA ONE (07:15)
[2021-07-23] MEDS ORDERED: MIDAZOLAM 2 MG/2 ML VIAL IVP ONE (07:25)
[2021-07-23] MEDS ORDERED: DEXAMETHASONE SOD PHOSPHATE 4 MG/ML 1 ML VIAL IVP ONE (07:57)
[2021-07-23] MEDS ORDERED: PROPOFOL 10 MG/ML 20 ML VIAL IV ONE (08:00)
[2021-07-23] MEDS ORDERED: fentaNYL (PF) 50 MCG/ML 2 ML AMP ONE (08:00)
[2021-07-23] MEDS ORDERED: TRANEXAMIC ACID 1,000 MG/10 ML VIAL ONE (08:00)
[2021-07-23] MEDS ORDERED: ROPIVACAINE 5 MG/ML 30 ML VIAL ONE (08:00)
[2021-07-23] MEDS ORDERED: MIDAZOLAM 2 MG/2 ML VIAL ONE (08:00)
[2021-07-23] MEDS ORDERED: KETAMINE 10 MG/ML 20 ML VIAL ONE (08:00)
[2021-07-23] MEDS ORDERED: diphenhydrAMINE 50 MG/ML 1 ML VIAL ONE (08:00)
[2021-07-23] MEDS ORDERED: SODIUM CHLORIDE 0.9% 100 ML BAG ONE (08:00)
[2021-07-23] MEDS ORDERED: ONDANSETRON 4 MG/2 ML VIAL ONE (08:00)
[2021-07-23] MEDS ORDERED: DEXAMETHASONE SOD PHOSPHATE 10 MG/ML 1 ML VIAL ONE (08:00)
[2021-07-23] MEDS ORDERED: SODIUM CHLORIDE 0.9% (PF) 10 ML VIAL ONE (08:00)
[2021-07-23] MEDS ORDERED: ceFAZolin 3,000 MG in SODIUM CHLORIDE 0.9% IRRIGATIO 3,000 ML IRRIGATION ONE (08:09)
--- NOTE | 2021-07-23 08:11 | P.ANPRN ---
Procedure Note - Anesthesia - Nerve Block Performed Right Adductor Canal Infusion Time Out Performed: Yes (0725) Date of Procedure: 07/23/21 Location of Patient: PreOp Indication: Acute Post-Operative Pain, Requested by Surgeon Specifically requested for management of pain by : Rell Boswell Sedation Type: Sedate with meaningful contact maintained Preparation: Sterile Prep, Sterile Dressing Position: Supine Catheter Depth at Skin (cm): 8 Catheter: Indwelling Needle Types: Pajunk Needle Gauge: 18 Ultrasound used to visualize needle placement: Yes Ultrasound used to observe medication spread: Yes Injectate: 0.5% Ropivacaine (see comment for volume) (15 ml of 0.5% Ropivacaine and 5 ml 0.9% NaCl) Blood Aspirated: No Pain Paresthesia on Injection Noted: No Resistance on Injection: Normal Image Stored and Saved: Yes Events: Uneventful and Well Tolerated
--- NOTE | 2021-07-23 08:13 | P.ANPRN ---
Procedure Note - Anesthesia - Nerve Block Performed Right iPack Single Time Out Performed: Yes (0725) Date of Procedure: 07/23/21 Location of Patient: PreOp Indication: Acute Post-Operative Pain, Requested by Surgeon Sedation Type: Sedate with meaningful contact maintained Preparation: Sterile Prep Position: Supine Catheter: None Needle Types: Pajunk Needle Gauge: 21 Ultrasound used to visualize needle placement: Yes Ultrasound used to observe medication spread: Yes Injectate: 0.5% Ropivacaine (see comment for volume) (15 ml of 0.5% Ropivacaine and 10 ml 0.9% NaCl with Decadran 10 mg) Blood Aspirated: No Pain Paresthesia on Injection Noted: No Resistance on Injection: Normal Image Stored and Saved: Yes
[2021-07-23] MEDS ORDERED: LACTATED RINGERS 1,000 ML IV ONE (09:45)
[2021-07-23] MEDS ORDERED: ROPIVACAINE 0.2%-NS ON-Q PUMP 1,090 MG, EMPTY PAIN BALL 1 EACH MISCELLANE PRN (10:09)
[2021-07-23] MEDS ORDERED: MAGNESIUM HYDROXIDE 2,400 MG/10 ML CUP PO PRN (10:11)
[2021-07-23] MEDS ORDERED: bisacodyL 10 MG SUPP RECTAL PRN (10:11)
[2021-07-23] MEDS ORDERED: ACETAMINOPHEN TAB 325 MG TAB PO PRN (10:11)
[2021-07-23] MEDS ORDERED: NA PHOS,M-B/NA PHOS,DI-BA 133 ML ENEMA RECTAL PRN (10:11)
[2021-07-23] MEDS ORDERED: ONDANSETRON 4 MG/2 ML VIAL IVP PRN (10:11)
[2021-07-23] MEDS ORDERED: NALOXONE 0.4 MG/ML 1 ML VIAL IV PRN (10:11)
[2021-07-23] MEDS ORDERED: diazePAM 5 MG TAB PO PRN (10:11)
[2021-07-23] MEDS ORDERED: HYDROmorphone 0.2 MG/1 ML SYRINGE IVP PRN (10:11)
[2021-07-23] MEDS ORDERED: TEMAZEPAM 15 MG CAP PO PRN (10:11)
[2021-07-23] MEDS ORDERED: FAMOTIDINE 20 MG/2 ML VIAL ONE (10:42)
[2021-07-23] MEDS ORDERED: FAMOTIDINE 20 MG/2 ML VIAL IVP ONE (10:47)
--- NOTE | 2021-07-23 11:00 | XR ---
EXAMINATION TYPE: XR knee limited RT DATE OF EXAM: 07/23/2021 CLINICAL HISTORY: Right knee pain and arthritis status post total knee replacement. TECHNIQUE: Portable AP and crosstable lateral views of the right knee are obtained immediately posto peratively. COMPARISON: None FINDINGS: Metallic hardware from total right knee arthroplasty is seen and appears satisfactory in a lignment and position. There is evidence of recent surgery with diffuse subcutaneous gas and soft ti ssue swelling noted. IMPRESSION: METALLIC HARDWARE FROM TOTAL RIGHT KNEE ARTHROPLASTY IS SATISFACTORY IN ALIGNMENT.
--- NOTE | 2021-07-23 13:39 | OP ---
OPERATIVE REPORT DATE OF PROCEDURE: 07/23/2021. SURGEON: Rell Boswell MD. IT PROGRAM ENGAGEMENT DIRECTOR: Faustino CANTRELL. PREOP DIAGNOSIS: Right knee osteoarthrosis. POSTOP DIAGNOSIS: Right knee osteoarthrosis. OPERATION: Right total knee arthroplasty. ANESTHESIA: Spinal with sedation. ESTIMATED BLOOD LOSS: 100 mL. TOURNIQUET: Tourniquet time was 47 minutes at 250 mmHg. COMPLICATIONS: None apparent. DRAINS: None. DISPOSITION: Postanesthesia care unit. INDICATIONS: Abbi is a 55-year-old female with longstanding history of right knee pain. History and physical examination are consistent with advanced right knee osteoarthrosis. She has been through significant nonoperative management up to this point. Further treatment options were discussed and she has decided to go forward with a right total knee arthroplasty. The risks of procedure were discussed with her in detail. These risks included, but were not limited to risk of infection, nerve damage, bleeding, pain, and a small risk of deep vein thrombosis which could lead to fatal pulmonary embolism. There is also risk of loosening of the implant which could require revision operation. The patient understands these risks. All of her questions were answered to her satisfaction. Appropriate informed consent was obtained. DESCRIPTION OF THE PROCEDURE: The patient was identified in the preoperative holding area. Surgical site was marked by both the patient and myself. She was given 2 grams of Ancef IV for prophylactic purposes. She was then transferred to the operative suite where she was placed supine on the operative table. Spinal anesthetic was then administered and dosed per the anesthesia without apparent complication. An examination under anesthesia was then performed. The patient was 2-3 degrees shy of full extension. She had 100 degrees of flexion. The medial collateral ligament, lateral collateral ligament posterior cruciate ligaments were stable. Tourniquet was then placed high on the right upper thigh well-padded in preparation for surgery. The patient's right lower extremity was then prepped and draped in usual sterile fashion. Standard surgical pause undertaken to ensure that we were operating on the correct site and that appropriate preoperative antibiotics were given. All staff in the room were in agreement and we proceeded. The outlines of the patella were marked with a surgical pen. A planned 12 cm vertical incision centered over the patella was marked surgical pen. The leg was then exsanguinated with Esmarch dressing. The knee was then flexed and tourniquet inflated to 250 mmHg. The total tourniquet time for the procedure was 47 minutes Incision was then made with a 10 blade scalpel. Dissection was carried down sharply overlying fascia. Great care was taken to minimize the skin flaps. The knee was then exposed using a standard medial parapatellar approach. A small cuff of quadriceps tendon was then left for suturing. She was in a bit of varus preoperatively. A standard medial release was then made. Superficial medial collateral ligament was dissected off the bone around the posterior aspect of the proximal tibia. The medial meniscus was then excised as well. The lateral meniscus was also released anteriorly. The leg was then externally rotated. The patella was everted. The knee was flexed. The retractors then placed to protect the collateral ligaments. I then proceeded to remove the infrapatellar fat pad. This was excised sharply tangentially with fibers of the patellar tendon. I then proceeded to remove the peripheral osteophytes. This was done with a rongeur. I then proceeded with the distal femoral resection. She did have near full extension. A planned 9 mm resection was then done. The femoral canal was then entered in the midline in the femur approximately 10 mm anterior to the origin of the posterior cruciate ligament. The karthikeyan was then advanced down the center of the femur and placed intramedullary. Based on the preoperative radiographs, the angle between the anatomic and mechanical axis of the femur was approximately 4-5 degrees. The valgus angle of the distal femoral cutting guide was then set at 4 degrees for the right knee. The distal femoral cutting guide was then advanced over the intramedullary karthikeyan. This was seated firmly against the femur. I then as mentioned planned to take 9 mm off the distal femur. The cutting block was then secured onto the femur with pins. The jig was then removed. The distal femoral cut was made through the slot of the block. The pins were then removed. The distal cutting block was removed. The accuracy of the distal femoral cuts was checked with 2 flat bars. I then proceeded with femoral sizing. The posterior referencing sizing guide was held firmly against the resected distal surface of the femur. The posterior condyles were resting on the posterior plane of the guide. The sizing stylus was then placed on the anterior femur. The size was measured as a size 9. I then assessed for femoral rotation. Plan was for 3 degrees external rotation. Three degrees external rotation was placed onto the jig. These holes were then marked. I then confirmed the rotation by 3 separate methods. This was done using epicondylar axis as well as Whitesides line and posterior referencing. It was deemed that the external rotation was proper. I then went forward placing the femoral cutting block. This was placed over the previously placed pin holes. The Omar wing was then placed on the anterior slots to ensure that we would not notch the anterior femur with the anterior femoral cut. I then proceeded with the anterior femoral cut. This was flush with the anterior cortex of the femur. The posterior cuts were then made followed by the anterior chamfer cut, then the posterior chamfer cut. The cutting block was then removed. Throughout the resection, the collateral ligaments were protected with retractors. We then placed a trial size 9 femur. It was slightly wide, but the narrow fit very nicely medial-lateral and it fit flush with the distal end of the femur. The drill hole was then made. I then proceeded with the tibial cut. I planned for cruciate retaining knee. The guide was placed and set for varus valgus and for slope. The height was set for approximate 2 mm resection from the medial tibial plateau which was the lower side. I was happy with the alignment and amount of resection. The cutting block was then pinned to the proximal tibia. The alignment karthikeyan was removed. The proximal tibia was resected with a reciprocating saw. Again, this was done with retractors protecting the collateral ligaments as well as the posterior cruciate ligament. I then proceeded to evaluate the flexion extension gaps. A 10 mm block was then placed. The flexion and extension gaps were equal. I then proceeded with resection of posterior osteophytes. She had very minimal posterior osteophytes. This was done using a curved osteotome. This resected the posterior osteophytes and posterior capsule stripping was done off the posterior aspect of the femur. The osteophytes were then removed. I then proceeded with resection of patella. The thickness of the patella was measured using the caliper. The thickness was 22 mm. The thickness of the anticipated patellar dome was taken into account. Resection was then performed and confirmed to be equal in 4 quadrants using a caliper. Approximately 14 mm of bone remained after resection. A 29 x 8.5 standard patellar trial was then placed. The holes were drilled. The trial was then placed. I then proceeded with sizing tibial plate. A size D tibial plate fit very nicely. I then placed a trial of the femur. The tibial tray and patellar button. A 10 mm trial tibial insert was also placed. The components fit very nicely. She had full extension and flexion. The extension and flexion gaps were equal and stable to both varus and valgus stress. The patella tracked appropriately. The tibial tray rotation was marked with a Bovie. This was externally rotated properly. I then proceed with tibial preparation. I first drilled the femoral holes, removed the femoral component. The tibial tray was then set for proper external rotation as well as mediolateral placement of the tibia. It was then pinned into place. I then proceeded with punching the keel. I then decided to proceed with cementing of all of our components. The knee was thoroughly irrigated with sterile saline solution via pulse lavage. The lateral geniculate artery was identified and cauterized. All blood was removed from the bone of the tibia femur and patella with pulse lavage. I then proceed with cementing. Two packs of antibiotic bone cement were prepared on the back table by the ophthalmic surgical assistant. I then proceed with cementing the tibia first. The cement was impacted into the keel as well as deeply seated in the bone. A second coat of cement was then placed. The tibia was then impacted into place. Excess cement was removed with Khoi's and jokers. I then proceeded with cementing the femoral component. The femoral component was also cemented using standard technique. Excess cement was removed. A 10 mm trial insert was then placed into the knee. It was brought into full extension with a constant axial load placed until the cement had hardened. The patellar component was then cemented. This was held firmly with a compressive device until the cement had dried. When the cement had dried, the knee was taken out of extension. All excess cement was removed from around the prosthesis. I then trialed the knee with a 10 mm insert. Flexion extension gaps were appropriate. The knee was stable. It came in full extension. I decided to go forward with a 10 mm medial congruent cross-linked cruciate-retaining tibial insert. Polyethylene was then placed in the tibial tray and then locked into place. The knee was then reduced. The knee was again further irrigated with sterile saline solution with antibiotic added. The tourniquet was then deflated. Total tourniquet time for the procedure was 47 minutes at 250 mmHg. Final components were Torey Persona size 9 narrow cruciate-retaining femoral component, size D tibial tray, a 10 mm medial congruent cruciate-retaining polyethylene insert and a 29 x 8.5 mm patella. I then proceeded with closure. Again, the knee was thoroughly irrigated. The quadriceps tendon and the medial retinaculum were reapproximated with #2 Ethibond suture. The extensor mechanism was then closed with a running #2 Quill suture. Subcutaneous tissues were closed with 2-0 Vicryl interrupted suture. The skin was closed with a running 3-0 Quill suture. Dermabond was applied to the incision. Sterile compressive dressing was then applied. All sponge and needle counts were deemed correct prior to closure. The patient tolerated the procedure without apparent complication. She was transferred to the recovery room in stable condition. MMODL / IJN: [id number] /
[2021-07-23] MEDS: HYDROcodone/APAP 5-325MG 1 EACH TAB PO PRN ×2 (14:14→23:36)
[2021-07-23] MEDS: LACTATED RINGERS 1,000 ML IV SCH ×2 (14:14→21:28)
[2021-07-23] MEDS: FAMOTIDINE 20 MG TAB PO SCH (14:50)
[2021-07-23] MEDS: HYDROmorphone 1 MG/ML 1 ML SYRINGE IVP PRN ×2 (17:05→21:33)
[2021-07-23] MEDS: SENNOSIDES-DOCUSATE SODIUM 1 EACH TAB PO SCH (21:27)
[2021-07-23] MEDS: ASPIRIN 81 MG PO SCH (21:27)
[2021-07-24] MEDS: FAMOTIDINE 20 MG TAB PO SCH ×2 (01:34→10:12)
[2021-07-24] MEDS: traMADol 50 MG TAB PO PRN ×2 (03:55→16:16)
[2021-07-24] MEDS: LACTATED RINGERS 1,000 ML IV SCH ×2 (06:55→08:01)
[2021-07-24] MEDS: HYDROcodone/APAP 10-325MG 1 EACH TAB PO PRN ×3 (07:11→21:30)
[2021-07-24] MEDS: hydrOXYzine pamoate 25 MG CAP PO PRN ×3 (07:13→21:29)
--- NOTE | 2021-07-24 07:23 | P.PN ---
Progress Note - Text Progress Note Date: 07/24/21 Postoperative day # 1 status post total knee arthroplasty, and adductor canal catheter placed for postoperative analgesia, currently at ropivacaine 0.2% 8 mL per hour and continuous infusion, visual analogue scale is 5/10, patient using oral pain medication for breakthrough pain. Assessment and plan= Acute postoperative pain, adductor canal catheter for pain control, pain is well controlled we'll continue the same management.
[2021-07-24] MEDS ORDERED: HYDROcodone/APAP 7.5-325MG 1 EACH TAB PO PRN ×2 (09:00)
[2021-07-24 09:17] LABS: Basophils # (A) 0.02 X 10*3/uL (0.00-0.10); Basophils % (A) 0.2 %; Eosinophils # (A) 0 X 10*3/uL (0.04-0.35); Eosinophils % (A) 0 %; HCT 32.6 % (37.2-46.3); Lymphocytes # (A) 2.59 X 10*3/uL (0.90-5.00); MCH 32.6 pg (27.0-32.0); MCHC 33.7 g/dL (32.0-37.0); MCV 96.7 fL (80.0-97.0); Mean Platelet Volume 10.4 fL (9.5-12.2); Monocytes % (A) 9.6 %; Neutrophils # (A) 6.75 X 10*3/uL (1.80-7.70); Platelet Count 188 X 10*3/uL (140-440); RBC 3.37 X 10*6/uL (4.10-5.20); WBC 10.38 X 10*3/uL (4.50-10.00)
[2021-07-24] MEDS: HYDROmorphone 1 MG/ML 1 ML SYRINGE IVP PRN (10:10)
[2021-07-24] MEDS: LACTOBACILLUS ACIDOPH & BULGAR 1 EACH PACKET PO SCH (10:13)
[2021-07-24] MEDS: ASPIRIN 81 MG PO SCH ×2 (10:13→21:29)
[2021-07-24] MEDS ORDERED: MULTIVITAMINS, THERA 1 EACH TAB PO SCH (12:00)
--- NOTE | 2021-07-24 13:53 | P.CONS ---
History of Present Illness - Reason for Consult Consult date: 07/24/21 - History of Present Illness HISTORY OF PRESENT ILLNESS This is a 55-year-old female patient of Dr. Tapia with past medical history of gastroesophageal reflux disease, LAP-BAND followed by gastric sleeve and panniculectomy. Patient has been brought in the hospital under the care of Dr. Boswell status post right total knee arthroplasty. Patient states that she has worked with physical therapy and went up 3 stairs. She is complaining of terrible pain in her right thigh. Patient's vital signs at been stable, no postop complications.WBC 10.3, hemoglobin 11, platelet count 188. Medication reconciliation has been reviewed. Patient is anticipating discharge home tomorrow.manager of case management has arranged home care. REVIEW OF SYSTEMS Constitutional: No fever, no chills, no night sweats. No weight change. No weakness, fatigue or lethargy. No daytime sleepiness. EENT: No headache. No blurred vision or double vision, no loss of vision. No loss of Hearing, no ringing in the ears, no dizziness. No nasal drainage or congestion. No epistaxis. No sore throat. Lungs: No shortness of breath, cough, no sputum production. No wheezing. Cardiovascular: No chest pain, no lower extremity edema. No palpitations. No paroxysmal nocturnal dyspnea. No orthopnea. No lightheadedness or dizziness. No syncopal episodes. Abdominal: No abdominal pain. No nausea, vomiting. No diarrhea. No constipation. No bloody or tarry stools. No loss of appetite. Genitourinary: No dysuria, increased frequency, urgency. No urinary retention. Musculoskeletal: No myalgias. No muscle weakness, no gait dysfunction, no frequent falls. No back pain. No neck pain. Right knee discomfort. Integumentary: No wounds, no lesions. No rash or pruritus. No unusual bruising. No change in hair or nails. Neurologic: No aphasia. No facial droop. No change in mentation. No head injury. No headache. No paralysis. No paresthesia. Psychiatric: No depression. No anxiety. No mood swings. Endocrine: No abnormal blood sugars. No weight change. No excessive sweating or thirst. No cold intolerance. SOCIAL HISTORY Patient is a nonsmoker, she drinks alcohol once per week. She does use marijuana. 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 FAMILY HISTORY Father at age 47 from throat cancer. Mother at age 82 from coronary artery disease. Patient has one brother with osteoarthritis. Patient has one sister and she has passed from pulmonary embolism with history of lung cancer. Patient has 4 children with no major medical problems.. PHYSICAL EXAMINATION Gen: This is this is a 55-year-old female. She is resting in bed and appears to be comfortable and in no acute distress. HEENT: Head is atraumatic, normocephalic. Pupils equal, round. Sclerae is anicteric. NECK: Supple. No JVD. No lymphadenopathy. No thyromegaly. LUNGS: Clear to auscultation. No wheezes or rhonchi. No intercostal retractions. HEART: Regular rate and rhythm. No murmur. ABDOMEN: Soft. Bowel sounds are present. No masses. No tenderness. EXTREMITIES: No pedal edema. No calf tenderness. Small dressing in place to the right knee. NEUROLOGICAL: Patient is awake, alert and oriented x3. Cranial nerves 2 through 12 are grossly intact. ASSESSMENT AND PLAN 1. Osteoarthritis status post right total knee arthroplasty. Continue current pain management per orthopedics, therapies per orthopedics, incentive spirometry to reduce incidence of atelectasis and hospital-acquired pneumonia. Continue aspirin 81 mg twice daily for 1 month for DVT prophylaxis. 2. Gastroesophageal reflux disease. Continue Pepcid. 3. History of morbid obesity with loss of 50 pounds status post lap band followed by gastric sleeve and panniculectomy. 4. DVT prophylaxis. Aspirin 81 mg twice daily. DISCHARGE PLAN Home with [facility] tomorrow. Impression and plan of care have been directed as dictated by the signing physician. Tami Marroquin nurse practitioner acting as scribe for signing physician. Past Medical History Past Medical History: GERD/Reflux, Osteoarthritis (OA) Additional Past Medical History / Comment(s): chronic erosive acid reflux (dx with EGD in February 2019). History of Any Multi-Drug Resistant Organisms: None Reported Past Surgical History: Bariatric Surgery, Cholecystectomy, Joint Replacement Additional Past Surgical History / Comment(s): lap band then gastric sleeve (Dr. Wheeler ? 2013), panniculectomy 12-04-18 Total right knee 07/23/2021 Past Anesthesia/Blood Transfusion Reactions: No Reported Reaction Past Psychological History: No Psychological Hx Reported Smoking Status: Former smoker Past Alcohol Use History: Occasional Additional Past Alcohol Use History / Comment(s): quit smoking over 29 years ago, started smoking age 13, hx of 2ppd. Past Drug Use History: Marijuana Additional Drug Use History / Comment(s): marijuana gummies - Past Family History Mother Family Medical History: Deep Vein Thrombosis (DVT) Sister(s) Family Medical History: Cancer, Pulmonary Embolus Additional Family Medical History / Comment(s): lung cancer Father Family Medical History: Cancer Additional Family Medical History / Comment(s): throat cancer Medications and Allergies Home Medications Medication Instructions Recorded Confirmed Type Blackberry Oil 1 dose PO DAILY 07/06/21 07/23/21 History Diclofenac Sodium Gel [Voltaren 2 gm TOPICAL DIRECTED PRN 07/06/21 07/23/21 History Gel] Enzyme Supplement 1 dose PO DAILY 07/06/21 07/23/21 History Famotidine [Pepcid AC] 10 mg PO DAILY 07/06/21 07/23/21 History Ibuprofen 800 mg PO DIRECTED PRN 07/06/21 07/23/21 History L.acidoph,Paracasei, B.lactis 1 each PO DAILY 07/06/21 07/23/21 History [Probiotic] [place]-3 Fatty Acids [[place]-3] 1 dose PO DAILY 07/06/21 07/23/21 History Vitamin D3/K2 [place] 1 dose PO DAILY 07/06/21 07/23/21 History Aspirin [Adult Low Dose Aspirin EC] 81 mg PO BID #60 tab 07/23/21 Rx Docusate [Colace] 100 mg PO BID #60 capsule 07/23/21 Rx HYDROcodone/APAP 7.5-325MG [Tina 1 - 2 each PO Q6HR PRN #42 tab 07/23/21 Rx 7.5-325] Allergies Allergy/AdvReac Type Severity Reaction Status Date / Time No Known Allergies Allergy Verified 07/23/21 06:46 Physical Exam Vitals: Vital Signs Temp Pulse Pulse Resp BP Pulse Ox 07/24/21 01:21 98.6 F 76 16 144/78 96 07/23/21 20:22 78 16 07/23/21 18:36 98.1 F 78 16 100/62 94 L 07/23/21 14:00 97.5 F L 58 L 18 150/91 98 07/23/21 13:41 62 16 136/78 98 07/23/21 13:25 55 L 16 150/66 99 07/23/21 12:30 60 16 110/66 99 07/23/21 12:00 52 L 16 102/69 99 07/23/21 11:30 57 L 16 107/69 100 07/23/21 11:00 48 L 16 113/69 100 07/23/21 10:45 46 L 16 123/74 100 07/23/21 10:30 45 L 12 127/74 100 07/23/21 10:15 46 L 12 124/65 99 Intake and Output 07/23/21 07/24/21 07/24/21 22:59 06:59 14:59 Output Total 600 Balance -600 Output: Urine 600 Other: Voiding Method Toilet # Voids 3 Results CBC & Chem 7: 07/24/21 06:11 Labs: Abnormal Lab Results - Last 24 Hours (Table) 07/24/21 Range/Units 06:11 WBC 10.38 H (4.50-10.00) X 10*3/uL RBC 3.37 L (4.10-5.20) X 10*6/uL Hgb 11.0 L (12.0-15.0) g/dL Hct 32.6 L (37.2-46.3) % MCH 32.6 H (27.0-32.0) pg Eosinophils # 0 L (0.04-0.35) X 10*3/uL
--- NOTE | 2021-07-24 14:42 | P.PN ---
Subjective Progress Note Date: 07/24/21 Principal diagnosis: Right TKA Patient is seen at bedside this morning. She is postop day #1 from right total knee arthroplasty. She has pain at the surgical site as expected but denies any new complaints. She denies numbness, tingling or calf pain. Review of systems is negative for fever, chills, chest pain, shortness of breath or other Objective - Vital Signs Vital signs: Vital Signs Temp 98.6 F 07/24/21 01:21 Pulse 76 07/24/21 01:21 Resp 16 07/24/21 01:21 BP 144/78 07/24/21 01:21 Pulse Ox 96 07/24/21 01:21 Intake & Output 07/23/21 07/24/21 07/24/21 18:59 06:59 18:59 Intake Total 1251 Output Total 700 Balance 551 Weight 81.2 kg Intake: IV 1251 Output: Urine 600 Estimated Blood Loss 100 Other: Voiding Method Toilet Toilet Toilet # Voids 3 - Exam Inspection reveals a benign surgical wound. There is no active bleeding or drainage. Neurovascular status is intact throughout the lower extremity with motor and sensation fully intact. Calf is soft and nontender. 2+ dorsalis pedis pulse and less than 2 second cap refill is present. - Constitutional General appearance: Present: no acute distress - Labs CBC & Chem 7: 07/24/21 06:11 Labs: Abnormal Lab Results - Last 24 Hours (Table) 07/24/21 Range/Units 06:11 WBC 10.38 H (4.50-10.00) X 10*3/uL RBC 3.37 L (4.10-5.20) X 10*6/uL Hgb 11.0 L (12.0-15.0) g/dL Hct 32.6 L (37.2-46.3) % MCH 32.6 H (27.0-32.0) pg Eosinophils # 0 L (0.04-0.35) X 10*3/uL Assessment and Plan (1) Osteoarthritis of right knee Narrative/Plan: She will continue with routine postop orthopedic protocol including pain management, wound care, PT, DVT prophylaxis and medical management. Expect that she will transfer to home tomorrow Current Visit: Yes Status: Acute Code(s): M17.11 - UNILATERAL PRIMARY OSTEOARTHRITIS, RIGHT KNEE SNOMED Code(s): 399203339831792 Time with Patient: Less than 30
[2021-07-24] MEDS: SENNOSIDES-DOCUSATE SODIUM 1 EACH TAB PO SCH (21:29)
[2021-07-25 02:29] VITALS: TEMP 99.1
[2021-07-25] MEDS: LACTATED RINGERS 1,000 ML IV SCH (04:56)
[2021-07-25] MEDS: hydrOXYzine pamoate 25 MG CAP PO PRN ×2 (06:04→13:56)
[2021-07-25] MEDS: LACTOBACILLUS ACIDOPH & BULGAR 1 EACH PACKET PO SCH (07:38)
[2021-07-25] MEDS: ASPIRIN 81 MG PO SCH (07:39)
[2021-07-25] MEDS: FAMOTIDINE 20 MG TAB PO SCH ×2 (07:39)
[2021-07-25 08:26] VITALS: BP 152/88; PULSE 80; RESP 16
--- NOTE | 2021-07-25 11:18 | P.DS ---
Providers Date of admission: 07/23/21 23:00 Expected date of discharge: 07/25/21 Attending physician: Rell Boswell Consults: 07/23/21 10:11 Consult Physician Routine Consulting Provider: Severino Carlson Reason/Comments: post op medical management Do you want consulting provider notified?: Yes Primary care physician: [facility] Course: This is a 55-year-old female who was last seen with complaint of continued right knee pain. The patient has a known history of degenerative arthritis of the right knee and presents to discuss surgical options. After discussion and consideration the patient elects to proceed with total right knee arthroplasty. The patient is seen preoperatively by Dr. Galicia and Dr. Mcnair and cleared for surgery. The patient underwent a right total knee arthroplasty on 07/23/[address] Boswell. The patient is admitted to [facility] for total right knee arthroplasty. The procedure is performed without complication or sequelae. Patient is doing well on post-operative day #2. Vital signs are stable at discharge. Labs are stable at discharge. Patient is seen and examined bedside this morning. She states the pain in her right knee is well-controlled. She states she was up with physical therapy this morning and ambulated in the hallways with her walker. She is tolerating her diet well. She is voiding freely. She is doing well with no complaints this morning. She denies chest pain, shortness breath, nausea, vomiting, fevers, chills. She denies numbness or tingling of the right lower extremity. On examination, patient is lying in bed in no apparent distress. She is alert and oriented 3. On inspection of the right knee, there is a healing incision on the anterior knee with no surrounding erythema, warmth, fluctuance. No bleeding or drainage. No evidence of infection. Motor and sensory function is intact of the right lower extremity. Dorsalis pedis pulse is palpable, right lower extremity is warm and well-perfused with brisk capillary refill distally. Calves are soft and nontender to palpation bilaterally, no evidence of DVT. The patient is discharged to home with home health care on post-op day #2, pending medical clearance. Please see orders and refer to the med rec for accurate list of medications. Plan - Discharge Summary Discharge Rx Participant: Yes New Discharge Prescriptions: New Aspirin [Adult Low Dose Aspirin EC] 81 mg PO BID #60 tab Docusate [Colace] 100 mg PO BID #60 capsule HYDROcodone/APAP 7.5-325MG [[place] 7.5-325] 1 - 2 each PO Q6HR PRN #42 tab PRN Reason: Pain No Action Huddy-3 Fatty Acids [Huddy-3] 1 dose PO DAILY L.acidoph,Paracasei, B.lactis [Probiotic] 1 each PO DAILY Ibuprofen 800 mg PO DIRECTED PRN PRN Reason: Pain Diclofenac Sodium Gel [Voltaren Gel] 2 gm TOPICAL DIRECTED PRN PRN Reason: Pain Vitamin D3/K2 Eddy 1 dose PO DAILY Famotidine [Pepcid AC] 10 mg PO DAILY Enzyme Supplement 1 dose PO DAILY Blackberry Oil 1 dose PO DAILY Discharge Medication List Blackberry Oil 1 dose PO DAILY 07/06/21 [History] Diclofenac Sodium Gel [Voltaren Gel] 2 gm TOPICAL DIRECTED PRN 07/06/21 [History] Enzyme Supplement 1 dose PO DAILY 07/06/21 [History] Famotidine [Pepcid AC] 10 mg PO DAILY 07/06/21 [History] Ibuprofen 800 mg PO DIRECTED PRN 07/06/21 [History] L.acidoph,Paracasei, B.lactis [Probiotic] 1 each PO DAILY 07/06/21 [History] Huddy-3 Fatty Acids [Huddy-3] 1 dose PO DAILY 07/06/21 [History] Vitamin D3/K2 Eddy 1 dose PO DAILY 07/06/21 [History] Aspirin [Adult Low Dose Aspirin EC] 81 mg PO BID #60 tab 07/23/21 [Rx] Docusate [Colace] 100 mg PO BID #60 capsule 07/23/21 [Rx] HYDROcodone/APAP 7.5-325MG [[place] 7.5-325] 1 - 2 each PO Q6HR PRN #42 tab 07/23/21 [Rx] Follow up Appointment(s)/Referral(s): [facility], [NON-STAFF] - ([facility] will call you to schedule your in home physical therapy visits. ) Herve Tapia DO [Primary Care Provider] - 08/06/21 9:15 am Rell Boswell MD [STAFF PHYSICIAN] - 08/05/21 8:30 am Activity/Diet/Wound Care/Special Instructions: Keep wound clean and dry Take meds as directed Follow-up with Dr. Boswell in office Weight bear as tolerated May shower in 3 days if no bleeding Discharge Disposition: HOME WITH HOME HEALTH SERVICES
[2021-07-25] MEDS: HYDROcodone/APAP 10-325MG 1 EACH TAB PO PRN (13:57)
--- NOTE | 2021-07-25 15:16 | P.PN ---
Subjective Progress Note Date: 07/25/21 HISTORY OF PRESENT ILLNESS This is a 55-year-old female patient of Dr. Tapia with past medical history of gastroesophageal reflux disease, LAP-BAND followed by gastric sleeve and panniculectomy. Patient has been brought in the hospital under the care of Dr. Boswell status post right total knee arthroplasty. Patient states that she has worked with physical therapy and went up 3 stairs. She is complaining of terrible pain in her right thigh. Patient's vital signs at been stable, no postop complications.WBC 10.3, hemoglobin 11, platelet count 188. Medication reconciliation has been reviewed. 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 07/25: Patient is doing slightly better today pain is still a factor but much better controlled than yesterday, patient is able to ambulate with minimum help, still have pain management system at this point with quite bed mother medication and it will last for another day. Patient is responding better to hydrocodone. She is very stable to be discharged home today. REVIEW OF SYSTEMS Constitutional: No fever, no chills, no night sweats. No weight change. No w eakness, fatigue or lethargy. No daytime sleepiness. EENT: No headache. No blurred vision or double vision, no loss of vision. No loss of Hearing, no ringing in the ears, no dizziness. No nasal drainage or congestion. No epistaxis. No sore throat. Lungs: No shortness of breath, cough, no sputum production. No wheezing. Cardiovascular: No chest pain, no lower extremity edema. No palpitations. No paroxysmal nocturnal dyspnea. No orthopnea. No lightheadedness or dizziness. No syncopal episodes. Abdominal: No abdominal pain. No nausea, vomiting. No diarrhea. No constipation. No bloody or tarry stools. No loss of appetite. Genitourinary: No dysuria, increased frequency, urgency. No urinary retention. Musculoskeletal: No myalgias. No muscle weakness, no gait dysfunction, no fr equent falls. No back pain. No neck pain. Right knee discomfort. Integumentary: No wounds, no lesions. No rash or pruritus. No unusual bruising. No change in hair or nails. Neurologic: No aphasia. No facial droop. No change in mentation. No head injury. No headache. No paralysis. No paresthesia. Psychiatric: No depression. No anxiety. No mood swings. Endocrine: No abnormal blood sugars. No weight change. No excessive sweating or thirst. No cold intolerance. PHYSICAL EXAMINATION Gen: This is this is a 55-year-old female. She is resting in bed and appears to be comfortable and in no acute distress. HEENT: Head is atraumatic, normocephalic. Pupils equal, round. Sclerae is anicteric. NECK: Supple. No JVD. No lymphadenopathy. No thyromegaly. LUNGS: Clear to auscultation. No wheezes or rhonchi. No intercostal retractions. HEART: Regular rate and rhythm. No murmur. ABDOMEN: Soft. Bowel sounds are present. No masses. No tenderness. EXTREMITIES: No pedal edema. No calf tenderness. Small dressing in place to the right knee. NEUROLOGICAL: Patient is awake, alert and oriented x3. Cranial nerves 2 through 12 are grossly intact. ASSESSMENT AND PLAN 1. Osteoarthritis status post right total knee arthroplasty. Continue pain management system, still on hydrocodone orally patient be discharged home today. 2. Gastroesophageal reflux disease. Continue Pepcid. 3. History of morbid obesity with loss of 50 pounds status post lap band followed by gastric sleeve and panniculectomy. 4 mild anemia: Mostly iron deficiency, to keep patient on multivitamin and iron supplement. 5. DVT prophylaxis. Aspirin 81 mg twice daily, per orthopedic protocol. Discharge planning: Patient be discharged home today. Objective - Vital Signs Vital signs: Vital Signs Temp 99.1 F 07/25/21 08:25 Pulse 80 07/25/21 08:25 Resp 16 07/25/21 08:25 BP 152/88 07/25/21 08:25 Pulse Ox 96 07/25/21 08:25 Intake & Output 07/24/21 07/25/21 07/25/21 18:59 06:59 18:59 Intake Total 1440 Balance 1440 Intake: Oral 1440 Other: Voiding Method Toilet Toilet # Voids 7 1 - Labs CBC & Chem 7: 07/24/21 06:11
== END 2021-07-25 15:33 | disposition home health service (06) ==
LOC: OR 06:24 → 4SSUR 13:40 → OR 23:00 → 4SSUR 23:00
PROVIDERS: ADMIT Orthopaedic Surgery Sports Medicine; ATTEND Orthopaedic Surgery Sports Medicine
DX: M17.11 Unilateral primary osteoarthritis, right knee (principal); D50.9 Iron deficiency anemia, unspecified; K21.9 Gastro-esophageal reflux disease without esophagitis; Z20.822 Contact with and (suspected) exposure to COVID-19; Z87.891 Personal history of nicotine dependence; Z79.82 Long term (current) use of aspirin; Z79.899 Other long term (current) drug therapy; Z98.84 Bariatric surgery status; Z90.49 Acquired absence of other specified parts of digestive tract; Z82.49 Family history of ischemic heart disease and other diseases of the circulatory system; Z80.8 Family history of malignant neoplasm of other organs or systems; Z82.61 Family history of arthritis; Z83.6 Family history of other diseases of the respiratory system; Z80.1 Family history of malignant neoplasm of trachea, bronchus and lung
CPT/HCPCS: 97116; 97110; 97161; 64999; 64448; 76942; 85025; 88300; 87635; 73560; 27447; G0378 ×3; C1776; C1713; J2250; J1200; J1100 ×2; J0690 ×2; J2405; J3010; J1170 ×3; J2795 ×2; J2704

== ENCOUNTER → 2025-04-03 | Outpatient (CLI) | payer BC ==
--- NOTE | 2025-04-03 09:13 | MM ---
Reason for Exam: Screening (asymptomatic). Last mammogram was performed 4 year(s) and 9 month(s) ago. Patient History: Menarche at age 11. First Full-Term at age 18. Postmenopausal. Patient has history of breast feeding. Patient used Hormonal Contraceptives for 10 years. Risk Values: Jeanne 5 year model risk: 1.3%. NCI Lifetime model risk: 6.4%. Prior Study Comparison: 07/11/2013 Screening Mammogram, Unknown. 01/06/2018 Bilateral Screening Mammogram, [facility]. 06/19/2020 Bilateral Screening Mammogram, [facility]. Tissue Density: There are scattered areas of fibroglandular density. Findings: Analyzed By CAD. There is no suspicious group of microcalcifications or new suspicious mass in either breast. Overall Assessment: Negative, BI-RAD 1 Management: Screening Mammogram of both breasts in 1 year. . Patient should continue monthly self-breast exams. A clinical breast exam by your physician is recommended on an annual basis. This exam should not preclude additional follow-up of suspicious palpable abnormalities. Note on Jeanne scores and lifetime risk: 1. A Jeanne score greater than 3% is considered moderate risk. If this is the case, consider specialist referral to assess eligibility for a risk reducing agent. 2. If overall lifetime risk for the development of breast cancer is 20% or higher, the patient may qualify for future screening with alternating mammogram and breast MRI. [facility], , 04/03/2025 9:10 AM. Electronically signed and approved by: Chung Durán M.D. [facility]
== END | disposition home or self-care (01) ==
LOC: RADMAMWWP 08:08
PROVIDERS: ATTEND Family Medicine
DX: Z12.31 Encounter for screening mammogram for malignant neoplasm of breast (principal); R92.323 Mammographic fibroglandular density, bilateral breasts; Z78.0 Asymptomatic menopausal state; Z92.0 Personal history of contraception
CPT/HCPCS: 77063; 77067